=== PATIENT | female | born 1970 | race Caucasian/White ===

== ENCOUNTER 2022-05-09 13:01 | Inpatient (IN) | payer MEDICAID ==
[~2022-05-09] VITALS: Ht 149.9 cm; Wt 68.0 kg
[2022-05-09 13:17] VITALS: BP_SYST 138
[2022-05-09 13:48] LABS: BASOPHILS % (AUTO) 0.5 % (0.0-2.0); EOSINOPHILS # (AUTO) 0.1 K/uL (0.0-0.4); EOSINOPHILS % (AUTO) 1.1 % (0.0-4.0); HEMATOCRIT 40.2 % (36-48); LYMPHOCYTES # (AUTO) 1.5 K/uL (1.0-5.5); LYMPHOCYTES % (AUTO) 22.8 % (20.5-51.5); MEAN CORPUSCULAR HEMOGLOBIN 28 pg (27-31); MEAN CORPUSCULAR HGB CONC 32 % (32-36); MEAN CORPUSCULAR VOLUME 86 fL (79.0-98.0); MONOCYTES # (AUTO) 0.5 K/uL (0.0-1.0); MONOCYTES % (AUTO) 8.4 % (1.7-9.3); NEUTROPHILS # (AUTO) 4.3 K/uL (1.8-7.7); NEUTROPHILS % (AUTO) 67.2 % (40.0-70.0); PLATELET COUNT (AUTO) 52 K/uL (130-430); RED BLOOD CELL COUNT(AUTO) 4.66 MIL/uL (4.2-6.2); RED CELL DISTRIBUTION WIDTH 19.6 % (9.0-15.0); WHITE BLOOD COUNT (AUTO) 6.4 K/uL (4.8-10.8)
[2022-05-09 13:58] LABS: ANION GAP 10 (5-15); CALCIUM 7.8 mg/dL (8.4-11.0); CHLORIDE 106 mmol/L (98-107); CREATININE 0.55 mg/dL (0.55-1.30); GLUCOSE 102 mg/dL (70-99); UREA NITROGEN, BLOOD 10 mg/dL (8-21)
[2022-05-09 14:01] LABS: GFR AFRICAN AMERICAN 149 mL/min (>90)
[2022-05-09 14:03] LABS: INR 1.4 (0.8-1.2); PROTHROMBIN TIME 14.7 SECS (9.5-12.5)
[2022-05-09 14:06] LABS: ALANINE AMINOTRANSFERASE 55 U/L (12-78); ALBUMIN 2.3 g/dL (3.4-4.8); ASPARTATE AMINOTRANSFERASE 47 U/L (10-37); TOTAL BILIRUBIN 5.1 mg/dL (0.0-1.0)
[2022-05-09] MEDS ORDERED: DIPHENHYDRAMINE INJ 50 MG/ML VIAL IVP ONE (14:30)
[2022-05-09 14:39] LABS: BILIRUBIN,URINE 1+ (NEGATIVE); BLOOD, URINE 1+ (NEGATIVE); CLARITY/URINE SL CLOUDY (CLEAR); COLOR,URINE YELLOW (YELLOW); GLUCOSE,URINE NEGATIVE (NEGATIVE); KETONES,URINE TRACE (NEGATIVE); LEUKOCYTE ESTERASE ,URINE TRACE (NEGATIVE); NITRITE, URINE NEGATIVE (NEGATIVE); PROTEIN URINE NEGATIVE (NEGATIVE)
[2022-05-09 14:48] LABS: BACTERIA,URINE FEW /HPF (None Seen); MUCUS,URINE 2+ /LPF (None Seen)
[2022-05-09] MEDS ORDERED: iohexoL 350 mgI/mL, 100 ML INFUS..BTL IV ONE (15:31)
[2022-05-09] MEDS ORDERED: ONDANSETRON HCL 4 MG/2 ML VIAL IVP ONE (17:00)
[2022-05-09] MEDS ORDERED: LACTULOSE 20 GM/30 ML UDC PO ONE (17:00)
[2022-05-09] MEDS ORDERED: KETOROLAC TROMETHAMINE 30 MG VIAL IVP ONE (18:15)
[2022-05-09] MEDS ORDERED: MUPIROCIN 2% TOPICAL OINTMENT 22 GM NS PRN (20:15)
[2022-05-09] MEDS ORDERED: MORPHINE 2 MG/ML INJ. SYRINGE IVP PRN ×2 (20:15)
[2022-05-09] MEDS ORDERED: MAGNESIUM SULFATE 50 ML IV PRN (20:15)
[2022-05-09] MEDS ORDERED: ACETAMINOPHEN 325 MG TABLET PO PRN (20:15)
[2022-05-09] MEDS ORDERED: ONDANSETRON HCL 4 MG/2 ML VIAL IVP PRN (20:15)
[2022-05-09] MEDS ORDERED: POTASSIUM CHLORIDE 20 MEQ TAB.PRT.SR PO PRN (20:15)
[2022-05-09] MEDS ORDERED: DOCUSATE SODIUM 100 MG CAPSULE PO PRN (20:15)
[2022-05-09] MEDS ORDERED: DEXTROSE 50% JECT 50 ML DISP.SYRIN IVP PRN (20:30)
[2022-05-09] MEDS ORDERED: cefTRIAXone 1 GM IVPB PREMIX 50 ML IV ONE (22:00)
[2022-05-10] MEDS ORDERED: PROP10TA10 PO (05:18)
[2022-05-10 07:10] VITALS: BP_SYST 99
[2022-05-10 08:00] VITALS: BP_SYST 117
[2022-05-10 08:37] LABS: BASOPHILS % (AUTO) 0.4 % (0.0-2.0); EOSINOPHILS # (AUTO) 0.1 K/uL (0.0-0.4); HEMATOCRIT 36.4 % (36-48); HEMOGLOBIN 11.9 g/dL (12.0-16.0); LYMPHOCYTES # (AUTO) 1.3 K/uL (1.0-5.5); LYMPHOCYTES % (AUTO) 26.8 % (20.5-51.5); MEAN CORPUSCULAR HEMOGLOBIN 28 pg (27-31); MEAN CORPUSCULAR HGB CONC 33 % (32-36); MEAN CORPUSCULAR VOLUME 86 fL (79.0-98.0); MONOCYTES # (AUTO) 0.5 K/uL (0.0-1.0); MONOCYTES % (AUTO) 9.2 % (1.7-9.3); NEUTROPHILS % (AUTO) 61.6 % (40.0-70.0); RED BLOOD CELL COUNT(AUTO) 4.22 MIL/uL (4.2-6.2); RED CELL DISTRIBUTION WIDTH 19.6 % (9.0-15.0); WHITE BLOOD COUNT (AUTO) 4.9 K/uL (4.8-10.8)
[2022-05-10 08:50] LABS: ALBUMIN 1.9 g/dL (3.4-4.8); CALCIUM 7.1 mg/dL (8.4-11.0); CREATININE 0.63 mg/dL (0.55-1.30); TOTAL BILIRUBIN 3.3 mg/dL (0.0-1.0)
[2022-05-10] MEDS: LACTULOSE 20 GM/30 ML UDC PO SCH (10:19)
[2022-05-10 10:30] VITALS: BP_SYST 117
[2022-05-10] MEDS: cefTRIAXone 1 GM IVPB PREMIX 50 ML IV SCH (10:36)
[2022-05-10 10:51] LABS: PLATELET COUNT (AUTO) 48 K/uL (130-430)
[2022-05-10] MEDS ORDERED: DIATR MEGLU/DIATRIZ SOD 30 ML SOLUTION PO ONE (10:58)
[2022-05-10] MEDS ORDERED: fentaNYL CITRATE/PF 100 MCG/2 ML AMP ONE (18:54)
[2022-05-10 19:30] VITALS: BP_SYST 119
[2022-05-10] MEDS: INSULIN LISPRO SLIDING SCALE 100 UNITS/ML, 3 ML VIAL (humaLOG) SUBCUT PRN (21:41)
[2022-05-11 00:53] VITALS: BP_SYST 112
[2022-05-11 06:35] LABS: BASOPHILS % (AUTO) 0.5 % (0.0-2.0); EOSINOPHILS # (AUTO) 0.1 K/uL (0.0-0.4); EOSINOPHILS % (AUTO) 1.8 % (0.0-4.0); HEMATOCRIT 35.8 % (36-48); HEMOGLOBIN 11.6 g/dL (12.0-16.0); LYMPHOCYTES # (AUTO) 1.3 K/uL (1.0-5.5); LYMPHOCYTES % (AUTO) 26.8 % (20.5-51.5); MEAN CORPUSCULAR HEMOGLOBIN 28 pg (27-31); MEAN CORPUSCULAR HGB CONC 32 % (32-36); MEAN CORPUSCULAR VOLUME 87 fL (79.0-98.0); MONOCYTES # (AUTO) 0.4 K/uL (0.0-1.0); MONOCYTES % (AUTO) 8.5 % (1.7-9.3); NEUTROPHILS # (AUTO) 2.9 K/uL (1.8-7.7); NEUTROPHILS % (AUTO) 62.4 % (40.0-70.0); RED BLOOD CELL COUNT(AUTO) 4.14 MIL/uL (4.2-6.2); RED CELL DISTRIBUTION WIDTH 19.6 % (9.0-15.0); WHITE BLOOD COUNT (AUTO) 4.7 K/uL (4.8-10.8)
[2022-05-11 07:44] LABS: TOTAL IRON BIND. CAPACITY 175 ug/dL (250-450)
[2022-05-11 07:46] VITALS: BP_SYST 114
[2022-05-11 07:58] LABS: ALBUMIN 1.9 g/dL (3.4-4.8); CALCIUM 7.6 mg/dL (8.4-11.0); CREATININE 0.53 mg/dL (0.55-1.30); TOTAL BILIRUBIN 2.9 mg/dL (0.0-1.0)
[2022-05-11] MEDS: LACTULOSE 20 GM/30 ML UDC PO SCH (08:54)
[2022-05-11] MEDS: cefTRIAXone 1 GM IVPB PREMIX 50 ML IV SCH (08:55)
[2022-05-11 08:58] LABS: PLATELET COUNT (AUTO) 47 K/uL (130-430)
[2022-05-11 10:18] LABS: BILIRUBIN,DIRECT 1.5 mg/dL (0.0-0.3); TOTAL BILIRUBIN 3.8 mg/dL (0.0-1.0)
[2022-05-11] MEDS: INSULIN LISPRO SLIDING SCALE 100 UNITS/ML, 3 ML VIAL (humaLOG) SUBCUT PRN ×2 (11:29→21:59)
[2022-05-11 12:30] VITALS: BP_SYST 134
[2022-05-11 16:35] VITALS: BP_SYST 118
[2022-05-11 17:31] VITALS: BP_SYST 108
[2022-05-11 19:35] VITALS: BP_SYST 112
[2022-05-11] MEDS: ACETAMINOPHEN 325 MG TABLET PO PRN (21:54)
[2022-05-12 00:19] VITALS: BP_SYST 116
[2022-05-12 07:44] VITALS: BP_SYST 109
[2022-05-12 08:06] LABS: AFP, TUMOR MARKER <1.8 ng/mL (0.0-9.2); FERRITIN 44 ng/mL (15-150)
[2022-05-12] MEDS: cefTRIAXone 1 GM IVPB PREMIX 50 ML IV SCH (08:21)
[2022-05-12] MEDS: LACTULOSE 20 GM/30 ML UDC PO SCH (08:21)
[2022-05-12 09:06] LABS: ALPHA-1-ANTITRYPSIN, S 115 mg/dL (101-187)
[2022-05-12 10:42] LABS: CALCIUM 7.4 mg/dL (8.4-11.0); CREATININE 0.63 mg/dL (0.55-1.30)
[2022-05-12] MEDS: INSULIN LISPRO SLIDING SCALE 100 UNITS/ML, 3 ML VIAL (humaLOG) SUBCUT PRN (11:23)
[2022-05-12 11:46] VITALS: BP_SYST 107
[2022-05-12 12:13] LABS: HEMOGLOBIN 11.9 g/dL (12.0-16.0); RED BLOOD CELL COUNT(AUTO) 4.19 MIL/uL (4.2-6.2)
[2022-05-12 12:14] LABS: BASOPHILS % (AUTO) 0.5 % (0.0-2.0); EOSINOPHILS # (AUTO) 0.1 K/uL (0.0-0.4); EOSINOPHILS % (AUTO) 1.9 % (0.0-4.0); HEMATOCRIT 36.9 % (36-48); LYMPHOCYTES # (AUTO) 0.9 K/uL (1.0-5.5); LYMPHOCYTES % (AUTO) 24.6 % (20.5-51.5); MEAN CORPUSCULAR HEMOGLOBIN 28 pg (27-31); MEAN CORPUSCULAR HGB CONC 32 % (32-36); MEAN CORPUSCULAR VOLUME 88 fL (79.0-98.0); MONOCYTES # (AUTO) 0.3 K/uL (0.0-1.0); NEUTROPHILS # (AUTO) 2.3 K/uL (1.8-7.7); RED CELL DISTRIBUTION WIDTH 19.4 % (9.0-15.0); WHITE BLOOD COUNT (AUTO) 3.6 K/uL (4.8-10.8)
[2022-05-12 12:16] LABS: PLATELET COUNT (AUTO) 51 K/uL (130-430)
[2022-05-12 16:26] VITALS: BP_SYST 109
[2022-05-12 20:10] VITALS: BP_SYST 110
[2022-05-13] MEDS: ACETAMINOPHEN 325 MG TABLET PO PRN (00:13)
[2022-05-13 00:30] VITALS: BP_SYST 118
[2022-05-13 07:14] LABS: BASOPHILS % (AUTO) 0.5 % (0.0-2.0); EOSINOPHILS # (AUTO) 0.1 K/uL (0.0-0.4); EOSINOPHILS % (AUTO) 3.2 % (0.0-4.0); HEMOGLOBIN 11.3 g/dL (12.0-16.0); LYMPHOCYTES # (AUTO) 0.9 K/uL (1.0-5.5); LYMPHOCYTES % (AUTO) 28.9 % (20.5-51.5); MEAN CORPUSCULAR HEMOGLOBIN 29 pg (27-31); MEAN CORPUSCULAR HGB CONC 33 % (32-36); MEAN CORPUSCULAR VOLUME 87 fL (79.0-98.0); MONOCYTES # (AUTO) 0.3 K/uL (0.0-1.0); MONOCYTES % (AUTO) 10.6 % (1.7-9.3); NEUTROPHILS # (AUTO) 1.8 K/uL (1.8-7.7); NEUTROPHILS % (AUTO) 56.8 % (40.0-70.0); RED BLOOD CELL COUNT(AUTO) 3.89 MIL/uL (4.2-6.2); RED CELL DISTRIBUTION WIDTH 19.5 % (9.0-15.0); WHITE BLOOD COUNT (AUTO) 3.2 K/uL (4.8-10.8)
[2022-05-13 07:39] LABS: CREATININE 0.59 mg/dL (0.55-1.30)
[2022-05-13 08:00] VITALS: BP_SYST 101
[2022-05-13] MEDS: LACTULOSE 20 GM/30 ML UDC PO SCH (09:53)
[2022-05-13] MEDS: cefTRIAXone 1 GM IVPB PREMIX 50 ML IV SCH (09:53)
[2022-05-13 11:06] LABS: ANTI NUCLEAR AB WITH REFLEX Negative (Negative)
[2022-05-13 11:36] LABS: PLATELET COUNT (AUTO) 46 K/uL (130-430)
[2022-05-13 12:40] VITALS: BP_SYST 129
[2022-05-13 16:40] VITALS: BP_SYST 127
[2022-05-13 16:58] VITALS: BP_SYST 129
[2022-05-13] MEDS ORDERED: LACT10SO7 PO (17:25)
[2022-05-14 09:06] LABS: ANTI-SMOOTH MUSCLE AB 7 Units (0-19)
[2022-05-17 08:07] LABS: HEPATITIS A AB, IgM Negative (Negative); HEPATITIS B CORE AB, IgM Negative (Negative); HEPATITIS B SURFACE AG Confirm. indicated (Negative)
== END 2022-05-13 17:50 | disposition home or self-care (01) ==
LOC: SED 13:01 → STU 20:12
PROVIDERS: ADMIT Family Medicine; ATTEND Family Medicine
DX: K80.20 Calculus of gallbladder without cholecystitis without obstruction (principal); E43 Unspecified severe protein-calorie malnutrition; D68.9 Coagulation defect, unspecified; D69.6 Thrombocytopenia, unspecified; K74.60 Unspecified cirrhosis of liver; E87.6 Hypokalemia; R06.03 Acute respiratory distress; N39.0 Urinary tract infection, site not specified; Z20.822 Contact with and (suspected) exposure to COVID-19; E11.9 Type 2 diabetes mellitus without complications; Z83.49 Family history of other endocrine, nutritional and metabolic diseases; Z68.30 Body mass index [BMI] 30.0-30.9, adult
CPT/HCPCS: 36415; 36600; 71045; 71275; 76376; 76705; 78226; 80048; 80053; 80074; 80076; 81000; 82042; 82103; 82105; 82140; 82728; 82803-TC; 82962; 83516; 83540; 83550; 83605; 83690; 83735; 83880; 84484; 85025; 85379; 85610-TC; 85730-TC; 86038; 87040; 87086; 93005; 96365; 96375; 99285; A9537; G0378; J0696; J1200; J1885; J2405; J3010; J7050; Q9964; Q9967

== ENCOUNTER 2022-05-24 15:09 | Inpatient (IN) | payer MEDICAID ==
[~2022-05-24] VITALS: Ht 175.3 cm; Wt 70.3 kg
[~2022-05-24 15:09] MED LIST: LACT10SO7 PO; PROP10TA10 PO
[2022-05-24 16:13] VITALS: BP_SYST 131
[2022-05-24 17:11] LABS: BILIRUBIN,URINE NEGATIVE (NEGATIVE); CLARITY/URINE CLEAR (CLEAR); COLOR,URINE YELLOW (YELLOW); GLUCOSE,URINE NEGATIVE (NEGATIVE); KETONES,URINE NEGATIVE (NEGATIVE); LEUKOCYTE ESTERASE ,URINE 1+ (NEGATIVE); NITRITE, URINE NEGATIVE (NEGATIVE); PH,URINE 5.5 (5.0-8.0); PROTEIN URINE NEGATIVE (NEGATIVE); UROBILINOGEN,URINE 0.2 (0.2-1.0)
[2022-05-24 17:24] LABS: BLOOD, URINE TRACE (NEGATIVE)
[2022-05-24 17:25] LABS: BACTERIA,URINE FEW /HPF (None Seen); MUCUS,URINE None Seen /LPF (None Seen); RBC,URINE NONE SEEN /HPF (0-3)
[2022-05-24 17:32] LABS: BASOPHILS % (AUTO) 0.4 % (0.0-2.0); EOSINOPHILS # (AUTO) 0.1 K/uL (0.0-0.4); EOSINOPHILS % (AUTO) 1.4 % (0.0-4.0); HEMATOCRIT 38.1 % (36-48); HEMOGLOBIN 12.6 g/dL (12.0-16.0); LYMPHOCYTES # (AUTO) 0.7 K/uL (1.0-5.5); LYMPHOCYTES % (AUTO) 19.1 % (20.5-51.5); MEAN CORPUSCULAR HEMOGLOBIN 28 pg (27-31); MEAN CORPUSCULAR HGB CONC 33 % (32-36); MEAN CORPUSCULAR VOLUME 85 fL (79.0-98.0); MONOCYTES # (AUTO) 0.4 K/uL (0.0-1.0); MONOCYTES % (AUTO) 11.5 % (1.7-9.3); NEUTROPHILS # (AUTO) 2.4 K/uL (1.8-7.7); NEUTROPHILS % (AUTO) 67.6 % (40.0-70.0); RED BLOOD CELL COUNT(AUTO) 4.47 MIL/uL (4.2-6.2); WHITE BLOOD COUNT (AUTO) 3.5 K/uL (4.8-10.8)
[2022-05-24 17:45] LABS: ANION GAP 9 (5-15); CALCIUM 7.4 mg/dL (8.4-11.0); CHLORIDE 108 mmol/L (98-107); CREATININE 0.51 mg/dL (0.55-1.30); GLUCOSE 95 mg/dL (70-99); PLATELET COUNT (AUTO) 59 K/uL (130-430); UREA NITROGEN, BLOOD 9 mg/dL (8-21)
[2022-05-24 17:49] LABS: ALANINE AMINOTRANSFERASE 48 U/L (12-78); AMYLASE 74 U/L (0-100); ASPARTATE AMINOTRANSFERASE 68 U/L (10-37); C-REACTIVE PROTEIN QUANT 3.7 mg/dL (0-0.5); INR 1.4 (0.8-1.2); LACTATE DEHYDROGENASE 317 U/L (81-234); LIPASE 257 U/L (73-393); TOTAL BILIRUBIN 3.4 mg/dL (0.0-1.0)
[2022-05-24 17:53] LABS: GFR AFRICAN AMERICAN 163 mL/min (>90)
[2022-05-24 18:07] LABS: ACETONE, SERUM NEGATIVE (NEGATIVE)
[2022-05-25] MEDS ORDERED: NALOXONE HCL 0.4 MG/ML AMP (NARCAN) IVP PRN ×2 (04:45)
[2022-05-25] MEDS ORDERED: HYDROcodone/ACETAMIN 10-325 MG TAB PO PRN (04:45)
[2022-05-25] MEDS ORDERED: ACETAMINOPHEN 325 MG TABLET PO PRN (04:45)
[2022-05-25] MEDS ORDERED: HYDROcodone/ACETAMIN 5-325 MG TAB (NORCO/ VICODIN) PO PRN (04:45)
[2022-05-25] MEDS ORDERED: ONDANSETRON HCL 4 MG/2 ML VIAL IVP PRN (04:45)
[2022-05-25] MEDS ORDERED: NORMAL SALINE 5 ML DISP.SYRIN IVF SCH (06:00)
[2022-05-25] MEDS: NORMAL SALINE 5 ML DISP.SYRIN IVF SCH ×2 (06:14→14:00)
[2022-05-25] MEDS: FUROSEMIDE 40 MG/4 ML VIAL IVP SCH (09:00)
[2022-05-25] MEDS ORDERED: NON-FORMULARY MEDICATION (Lactulose 20 GM) PO SCH (09:00)
[2022-05-25] MEDS: LACTULOSE 20 GM/30 ML UDC PO SCH (09:00)
[2022-05-25] MEDS: PROPRANOLOL HCL 10 MG TABLET (INDERAL) PO SCH ×3 (09:00→21:00)
[2022-05-25 09:28] LABS: BASOPHILS % (AUTO) 0.2 % (0.0-2.0); EOSINOPHILS % (AUTO) 1.4 % (0.0-4.0); HEMATOCRIT 34.1 % (36-48); HEMOGLOBIN 11.1 g/dL (12.0-16.0); LYMPHOCYTES # (AUTO) 0.7 K/uL (1.0-5.5); LYMPHOCYTES % (AUTO) 29.1 % (20.5-51.5); MEAN CORPUSCULAR HEMOGLOBIN 28 pg (27-31); MEAN CORPUSCULAR HGB CONC 33 % (32-36); MEAN CORPUSCULAR VOLUME 87 fL (79.0-98.0); MONOCYTES # (AUTO) 0.3 K/uL (0.0-1.0); MONOCYTES % (AUTO) 12.4 % (1.7-9.3); NEUTROPHILS # (AUTO) 1.3 K/uL (1.8-7.7); NEUTROPHILS % (AUTO) 56.9 % (40.0-70.0); RED BLOOD CELL COUNT(AUTO) 3.94 MIL/uL (4.2-6.2); RED CELL DISTRIBUTION WIDTH 20.2 % (9.0-15.0); WHITE BLOOD COUNT (AUTO) 2.3 K/uL (4.8-10.8)
[2022-05-25 09:46] LABS: ALBUMIN 1.7 g/dL (3.4-4.8); CALCIUM 7.3 mg/dL (8.4-11.0); CREATININE 0.65 mg/dL (0.55-1.30); TOTAL BILIRUBIN 3.5 mg/dL (0.0-1.0)
[2022-05-25 09:48] LABS: PLATELET COUNT (AUTO) 40 K/uL (130-430)
[2022-05-25] MEDS ORDERED: KCL 40 mEq in 100 mL (PREMIX) 100 ML IV ONE (12:30)
[2022-05-25] MEDS ORDERED: POTASSIUM CHLORIDE 40 MEQ in D5W 250 ML IV ONE (13:00)
[2022-05-25] MEDS: SPIRONOLACTONE 50 MG TABLET (ALDACTONE) PO SCH ×2 (15:45→21:00)
[2022-05-25] MEDS: DEXAMETHASONE SOD PHOSPHATE 10 MG/ML VIAL IVP SCH (20:15)
[2022-05-26] MEDS: NORMAL SALINE 5 ML DISP.SYRIN IVF SCH ×4 (00:10→21:59)
[2022-05-26 07:57] LABS: BASOPHILS % (AUTO) 0.1 % (0.0-2.0); EOSINOPHILS % (AUTO) 0.2 % (0.0-4.0); HEMATOCRIT 37.1 % (36-48); HEMOGLOBIN 11.8 g/dL (12.0-16.0); LYMPHOCYTES # (AUTO) 0.5 K/uL (1.0-5.5); LYMPHOCYTES % (AUTO) 26.7 % (20.5-51.5); MEAN CORPUSCULAR HEMOGLOBIN 28 pg (27-31); MEAN CORPUSCULAR HGB CONC 32 % (32-36); MEAN CORPUSCULAR VOLUME 87 fL (79.0-98.0); MONOCYTES # (AUTO) 0.1 K/uL (0.0-1.0); MONOCYTES % (AUTO) 2.7 % (1.7-9.3); NEUTROPHILS # (AUTO) 1.3 K/uL (1.8-7.7); NEUTROPHILS % (AUTO) 70.3 % (40.0-70.0); RED BLOOD CELL COUNT(AUTO) 4.25 MIL/uL (4.2-6.2); RED CELL DISTRIBUTION WIDTH 20.4 % (9.0-15.0)
[2022-05-26 08:05] LABS: PLATELET COUNT (AUTO) 40 K/uL (130-430); WHITE BLOOD COUNT (AUTO) 1.9 K/uL (4.8-10.8)
[2022-05-26 08:19] LABS: ALBUMIN 1.8 g/dL (3.4-4.8); CALCIUM 7.7 mg/dL (8.4-11.0); CREATININE 0.62 mg/dL (0.55-1.30); INR 1.6 (0.8-1.2); PROTHROMBIN TIME 15.5 SECS (9.5-12.5); TOTAL BILIRUBIN 2.3 mg/dL (0.0-1.0)
[2022-05-26] MEDS: PROPRANOLOL HCL 10 MG TABLET (INDERAL) PO SCH ×3 (09:00→21:00)
[2022-05-26] MEDS: LACTULOSE 20 GM/30 ML UDC PO SCH (12:31)
[2022-05-26] MEDS: SPIRONOLACTONE 50 MG TABLET (ALDACTONE) PO SCH ×2 (12:34→21:00)
[2022-05-26] MEDS: FUROSEMIDE 40 MG/4 ML VIAL IVP SCH (12:35)
[2022-05-26 13:55] VITALS: BP_SYST 108
[2022-05-26 16:24] VITALS: BP_SYST 106
[2022-05-26 20:00] VITALS: BP_SYST 103
[2022-05-26] MEDS: DEXAMETHASONE SOD PHOSPHATE 10 MG/ML VIAL IVP SCH (21:55)
[2022-05-27 08:06] LABS: FERRITIN 51 ng/mL (15-150); FOLATE (FOLIC ACID) 9.8 ng/mL (>3.0)
[2022-05-27 08:11] LABS: HEMATOCRIT 34.8 % (36-48); HEMOGLOBIN 11.3 g/dL (12.0-16.0); LYMPHOCYTES % (AUTO) 11.8 % (20.5-51.5); MEAN CORPUSCULAR HEMOGLOBIN 29 pg (27-31); MEAN CORPUSCULAR HGB CONC 33 % (32-36); MEAN CORPUSCULAR VOLUME 88 fL (79.0-98.0); MONOCYTES # (AUTO) 0.2 K/uL (0.0-1.0); MONOCYTES % (AUTO) 2.7 % (1.7-9.3); NEUTROPHILS # (AUTO) 7.6 K/uL (1.8-7.7); NEUTROPHILS % (AUTO) 85.5 % (40.0-70.0); PLATELET COUNT (AUTO) 50 K/uL (130-430); RED BLOOD CELL COUNT(AUTO) 3.98 MIL/uL (4.2-6.2); RED CELL DISTRIBUTION WIDTH 20.6 % (9.0-15.0); WHITE BLOOD COUNT (AUTO) 8.9 K/uL (4.8-10.8)
[2022-05-27 08:29] LABS: INR 1.7 (0.8-1.2); PROTHROMBIN TIME 16.9 SECS (9.5-12.5)
[2022-05-27] MEDS: LACTULOSE 20 GM/30 ML UDC PO SCH (08:43)
[2022-05-27] MEDS: NORMAL SALINE 5 ML DISP.SYRIN IVF SCH ×3 (08:43→21:05)
[2022-05-27] MEDS: FUROSEMIDE 40 MG/4 ML VIAL IVP SCH (08:44)
[2022-05-27 08:54] VITALS: BP_SYST 104
[2022-05-27] MEDS: ACETAMINOPHEN 325 MG TABLET PO PRN (08:54)
[2022-05-27] MEDS: SPIRONOLACTONE 50 MG TABLET (ALDACTONE) PO SCH ×2 (08:54→21:15)
[2022-05-27 08:55] LABS: ALBUMIN 1.7 g/dL (3.4-4.8); C-REACTIVE PROTEIN QUANT 3.7 mg/dL (0-0.5); CALCIUM 7.5 mg/dL (8.4-11.0); CREATININE 0.57 mg/dL (0.55-1.30); TOTAL BILIRUBIN 1.7 mg/dL (0.0-1.0)
[2022-05-27 08:58] LABS: ERYTHROCYTE SEDIMENTATION RATE 12 MM/HR (0-20)
[2022-05-27] MEDS: PROPRANOLOL HCL 10 MG TABLET (INDERAL) PO SCH ×3 (09:00→21:00)
[2022-05-27 12:00] VITALS: BP_SYST 97
[2022-05-27 16:00] VITALS: BP_SYST 109
[2022-05-27 20:00] VITALS: BP_SYST 109
[2022-05-27] MEDS: DEXAMETHASONE SOD PHOSPHATE 10 MG/ML VIAL IVP SCH (21:04)
[2022-05-28 02:00] VITALS: BP_SYST 105
[2022-05-28 07:17] LABS: C-REACTIVE PROTEIN QUANT 2.5 mg/dL (0-0.5); CALCIUM 7.8 mg/dL (8.4-11.0); CREATININE 0.62 mg/dL (0.55-1.30)
[2022-05-28 07:33] LABS: HEMATOCRIT 31.9 % (36-48); HEMOGLOBIN 10.4 g/dL (12.0-16.0); LYMPHOCYTES # (AUTO) 0.8 K/uL (1.0-5.5); LYMPHOCYTES % (AUTO) 15.3 % (20.5-51.5); MEAN CORPUSCULAR HEMOGLOBIN 28 pg (27-31); MEAN CORPUSCULAR HGB CONC 33 % (32-36); MEAN CORPUSCULAR VOLUME 87 fL (79.0-98.0); MONOCYTES # (AUTO) 0.2 K/uL (0.0-1.0); MONOCYTES % (AUTO) 3.5 % (1.7-9.3); NEUTROPHILS # (AUTO) 4.1 K/uL (1.8-7.7); NEUTROPHILS % (AUTO) 81.2 % (40.0-70.0); RED BLOOD CELL COUNT(AUTO) 3.69 MIL/uL (4.2-6.2); RED CELL DISTRIBUTION WIDTH 20.5 % (9.0-15.0); WHITE BLOOD COUNT (AUTO) 5.1 K/uL (4.8-10.8)
[2022-05-28 08:21] LABS: PLATELET COUNT (AUTO) 35 K/uL (130-430)
[2022-05-28 08:27] VITALS: BP_SYST 102
[2022-05-28] MEDS: PROPRANOLOL HCL 10 MG TABLET (INDERAL) PO SCH ×3 (09:00→21:00)
[2022-05-28] MEDS: LACTULOSE 20 GM/30 ML UDC PO SCH (09:35)
[2022-05-28] MEDS: SPIRONOLACTONE 50 MG TABLET (ALDACTONE) PO SCH ×2 (09:36→22:11)
[2022-05-28] MEDS: FUROSEMIDE 40 MG/4 ML VIAL IVP SCH (09:36)
[2022-05-28] MEDS: NORMAL SALINE 5 ML DISP.SYRIN IVF SCH ×3 (09:37→22:14)
[2022-05-28 10:14] LABS: ERYTHROCYTE SEDIMENTATION RATE 13 MM/HR (0-20)
[2022-05-28 12:00] VITALS: BP_SYST 102
[2022-05-28 12:06] LABS: HEPATITIS Be AB Negative (Negative)
[2022-05-28 16:00] VITALS: BP_SYST 116
[2022-05-28 19:45] VITALS: BP_SYST 105
[2022-05-28] MEDS: DEXAMETHASONE SOD PHOSPHATE 10 MG/ML VIAL IVP SCH (21:56)
[2022-05-28] MEDS: ACETAMINOPHEN 325 MG TABLET PO PRN (22:15)
[2022-05-29] VITALS (32 sets, daily range): BP systolic 82–118
[2022-05-29] MEDS: NORMAL SALINE 5 ML DISP.SYRIN IVF SCH ×3 (06:00→20:28)
[2022-05-29 08:06] LABS: HEPATITIS B CORE AB, IgM Negative (Negative); HEPATITIS B CORE AB, TOTAL Negative (Negative); HEPATITIS Be AG Negative (Negative)
[2022-05-29] MEDS: PROPRANOLOL HCL 10 MG TABLET (INDERAL) PO SCH ×3 (09:00→20:28)
[2022-05-29] MEDS: FUROSEMIDE 40 MG/4 ML VIAL IVP SCH (09:00)
[2022-05-29] MEDS: SPIRONOLACTONE 50 MG TABLET (ALDACTONE) PO SCH ×2 (09:00→20:28)
[2022-05-29] MEDS: LACTULOSE 20 GM/30 ML UDC PO SCH (09:00)
[2022-05-29 12:09] LABS: BASOPHILS % (AUTO) 0.3 % (0.0-2.0); HEMATOCRIT 37.1 % (36-48); HEMOGLOBIN 12.1 g/dL (12.0-16.0); LYMPHOCYTES # (AUTO) 0.7 K/uL (1.0-5.5); LYMPHOCYTES % (AUTO) 14.7 % (20.5-51.5); MEAN CORPUSCULAR HEMOGLOBIN 28 pg (27-31); MEAN CORPUSCULAR HGB CONC 33 % (32-36); MEAN CORPUSCULAR VOLUME 87 fL (79.0-98.0); MONOCYTES # (AUTO) 0.3 K/uL (0.0-1.0); MONOCYTES % (AUTO) 5.2 % (1.7-9.3); NEUTROPHILS # (AUTO) 4.1 K/uL (1.8-7.7); NEUTROPHILS % (AUTO) 79.8 % (40.0-70.0); RED BLOOD CELL COUNT(AUTO) 4.27 MIL/uL (4.2-6.2); RED CELL DISTRIBUTION WIDTH 20.4 % (9.0-15.0); WHITE BLOOD COUNT (AUTO) 5.1 K/uL (4.8-10.8)
[2022-05-29 12:10] LABS: CREATININE 0.72 mg/dL (0.55-1.30)
[2022-05-29 12:21] LABS: ALBUMIN 1.7 g/dL (3.4-4.8); TOTAL BILIRUBIN 1.6 mg/dL (0.0-1.0)
[2022-05-29 12:27] LABS: PLATELET COUNT (AUTO) 41 K/uL (130-430)
[2022-05-29] MEDS ORDERED: ALBUMIN HUMAN 5% 250 ML IV ONE ×2 (16:30)
[2022-05-29] MEDS: DEXAMETHASONE SOD PHOSPHATE 10 MG/ML VIAL IVP SCH (20:27)
[2022-05-29] MEDS: NOREPINEPHRINE BITARTRATE 8 MG in D5W 242 ML IV PRN (20:42)
[2022-05-29] MEDS: PROPOFOL DRIP 100 ML IV PRN (23:59)
[2022-05-30] VITALS (48 sets, daily range): BP systolic 77–123
[2022-05-30] MEDS ORDERED: AZITHROMYCIN 500 MG in NS 250 ML IV ONE (03:30)
[2022-05-30] MEDS ORDERED: AZITHROMYCIN 500 MG/VIAL (ZITHROMAX) IV ONE (03:46)
[2022-05-30] MEDS ORDERED: CEFEPIME 2 GM/VIAL (MAXIPIME) ONE (05:17)
[2022-05-30] MEDS: CEFEPIME 2 GM in D5W 100 ML IV SCH ×2 (05:20→21:22)
[2022-05-30] MEDS: NORMAL SALINE 5 ML DISP.SYRIN IVF SCH ×3 (05:50→21:25)
[2022-05-30 06:46] LABS: CALCIUM 7.9 mg/dL (8.4-11.0); CREATININE 0.44 mg/dL (0.55-1.30)
[2022-05-30 07:08] LABS: INR 2.4 (0.8-1.2)
[2022-05-30 07:58] LABS: BASOPHILS % (AUTO) 0.6 % (0.0-2.0); EOSINOPHILS % (AUTO) 0.3 % (0.0-4.0); HEMATOCRIT 34.1 % (36-48); HEMOGLOBIN 11.4 g/dL (12.0-16.0); LYMPHOCYTES # (AUTO) 1.1 K/uL (1.0-5.5); LYMPHOCYTES % (AUTO) 15.4 % (20.5-51.5); MEAN CORPUSCULAR HEMOGLOBIN 29 pg (27-31); MEAN CORPUSCULAR HGB CONC 34 % (32-36); MEAN CORPUSCULAR VOLUME 88 fL (79.0-98.0); MONOCYTES # (AUTO) 0.3 K/uL (0.0-1.0); NEUTROPHILS # (AUTO) 5.6 K/uL (1.8-7.7); NEUTROPHILS % (AUTO) 79.7 % (40.0-70.0); PLATELET COUNT (AUTO) 147 K/uL (130-430); RED BLOOD CELL COUNT(AUTO) 3.89 MIL/uL (4.2-6.2); WHITE BLOOD COUNT (AUTO) 7.1 K/uL (4.8-10.8)
[2022-05-30 08:01] LABS: PROTHROMBIN TIME 22.9 SECS (9.5-12.5)
[2022-05-30] MEDS: SPIRONOLACTONE 50 MG TABLET (ALDACTONE) PO SCH ×2 (09:00→21:23)
[2022-05-30] MEDS ORDERED: PHYTONADIONE 10 MG in NS 50 ML IV ONE (09:30)
[2022-05-30] MEDS ORDERED: iohexoL 350 mgI/mL, 100 ML INFUS..BTL IV ONE (10:23)
[2022-05-30 12:53] LABS: BF APPEARANCE UNSPUN HAZY (CLEAR); BODY FLUID SOURCE/ TYPE ASCITES
[2022-05-30 12:59] LABS: APPEARANCE,SPUN,BODY FLUID CLEAR (CLEAR); BODY FLUID COLOR YELLOW (LT YELLOW); BODY FLUID TOTAL VOLUME 3900 mL; LYMPHOCYTES, BODY FLUID 69 %; NEUTROPHIL, BODY FLUID 23 %; RBC, BODY FLUID 883 /uL; WBC, BODY FLUID 88 /uL
[2022-05-30 13:00] LABS: EOSINOPHIL, BODY FLUID 0 %; MONOCYTES,BODY FLUID 8 %
[2022-05-30] MEDS ORDERED: PHYTONADIONE 10 MG/ML AMP ONE (14:35)
[2022-05-30] MEDS: LACTULOSE 20 GM/30 ML UDC PO SCH (15:04)
[2022-05-30] MEDS: PROPOFOL DRIP 100 ML IV PRN (15:09)
[2022-05-30] MEDS: PROPRANOLOL HCL 10 MG TABLET (INDERAL) PO SCH ×3 (15:09→21:24)
[2022-05-30] MEDS: FUROSEMIDE 40 MG/4 ML VIAL IVP SCH (15:14)
[2022-05-30] MEDS: DEXAMETHASONE SOD PHOSPHATE 10 MG/ML VIAL IVP SCH (20:47)
[2022-05-30 22:13] LABS: BODY FLUID GLUCOSE 201 mg/dL; BODY FLUID TOTAL PROTEIN 0.7 g/dL
[2022-05-31] VITALS (50 sets, daily range): BP systolic 88–132
[2022-05-31] MEDS: PROPOFOL DRIP 100 ML IV PRN ×4 (02:38→21:27)
[2022-05-31] MEDS: NORMAL SALINE 5 ML DISP.SYRIN IVF SCH ×3 (05:25→21:26)
[2022-05-31 06:25] LABS: BASOPHILS % (AUTO) 0.1 % (0.0-2.0); HEMATOCRIT 37.4 % (36-48); HEMOGLOBIN 12.5 g/dL (12.0-16.0); LYMPHOCYTES # (AUTO) 1.5 K/uL (1.0-5.5); LYMPHOCYTES % (AUTO) 15.5 % (20.5-51.5); MEAN CORPUSCULAR HEMOGLOBIN 28 pg (27-31); MEAN CORPUSCULAR HGB CONC 33 % (32-36); MEAN CORPUSCULAR VOLUME 85 fL (79.0-98.0); MONOCYTES # (AUTO) 0.4 K/uL (0.0-1.0); MONOCYTES % (AUTO) 4.6 % (1.7-9.3); NEUTROPHILS # (AUTO) 7.6 K/uL (1.8-7.7); NEUTROPHILS % (AUTO) 79.8 % (40.0-70.0); PLATELET COUNT (AUTO) 88 K/uL (130-430); RED CELL DISTRIBUTION WIDTH 20.8 % (9.0-15.0); WHITE BLOOD COUNT (AUTO) 9.5 K/uL (4.8-10.8)
[2022-05-31 06:48] LABS: ALBUMIN 1.9 g/dL (3.4-4.8); C-REACTIVE PROTEIN QUANT 1.1 mg/dL (0-0.5); CALCIUM 8.2 mg/dL (8.4-11.0); CREATININE 0.85 mg/dL (0.55-1.30); TOTAL BILIRUBIN 3.7 mg/dL (0.0-1.0)
[2022-05-31 08:06] LABS: INR 2.1 (0.8-1.2); PROTHROMBIN TIME 20.8 SECS (9.5-12.5)
[2022-05-31] MEDS: SPIRONOLACTONE 50 MG TABLET (ALDACTONE) PO SCH ×2 (09:00→21:23)
[2022-05-31] MEDS: AZITHROMYCIN 250 MG in NS 250 ML IV SCH (09:00)
[2022-05-31] MEDS: PROPRANOLOL HCL 10 MG TABLET (INDERAL) PO SCH ×3 (09:00→21:24)
[2022-05-31] MEDS: CEFEPIME 2 GM in D5W 100 ML IV SCH ×2 (09:11→21:25)
[2022-05-31] MEDS: FUROSEMIDE 40 MG/4 ML VIAL IVP SCH (09:12)
[2022-05-31] MEDS: LACTULOSE 20 GM/30 ML UDC PO SCH (09:13)
[2022-05-31 10:32] LABS: ERYTHROCYTE SEDIMENTATION RATE 3 MM/HR (0-20)
[2022-05-31] MEDS: LORazepam 2 MG/ML VIAL IV PRN (13:04)
[2022-05-31 14:14] LABS: SOURCE/TYPE ,BODY FLUID PARACENTESIS
[2022-05-31] MEDS: DEXAMETHASONE SOD PHOSPHATE 10 MG/ML VIAL IVP SCH (21:25)
[2022-05-31] MEDS: NOREPINEPHRINE BITARTRATE 8 MG in D5W 242 ML IV PRN (21:28)
[2022-06-01] VITALS (26 sets, daily range): BP systolic 97–163
[2022-06-01] MEDS: PROPOFOL DRIP 100 ML IV PRN ×2 (04:52→14:37)
[2022-06-01] MEDS: NORMAL SALINE 5 ML DISP.SYRIN IVF SCH ×3 (05:49→21:45)
[2022-06-01 07:37] LABS: C-REACTIVE PROTEIN QUANT 0.8 mg/dL (0-0.5); CREATININE 0.82 mg/dL (0.55-1.30)
[2022-06-01 08:06] LABS: HEMATOCRIT 39.1 % (36-48); HEMOGLOBIN 12.7 g/dL (12.0-16.0); MEAN CORPUSCULAR HEMOGLOBIN 28 pg (27-31); MEAN CORPUSCULAR HGB CONC 33 % (32-36); MEAN CORPUSCULAR VOLUME 86 fL (79.0-98.0); RED BLOOD CELL COUNT(AUTO) 4.55 MIL/uL (4.2-6.2); RED CELL DISTRIBUTION WIDTH 20.5 % (9.0-15.0); WHITE BLOOD COUNT (AUTO) 8.4 K/uL (4.8-10.8)
[2022-06-01 08:07] LABS: BASOPHILS % (AUTO) 0.3 % (0.0-2.0); LYMPHOCYTES # (AUTO) 0.8 K/uL (1.0-5.5); MONOCYTES # (AUTO) 0.5 K/uL (0.0-1.0); MONOCYTES % (AUTO) 6.2 % (1.7-9.3); NEUTROPHILS % (AUTO) 83.5 % (40.0-70.0); PLATELET COUNT (AUTO) 72 K/uL (130-430)
[2022-06-01 08:56] LABS: ERYTHROCYTE SEDIMENTATION RATE 5 MM/HR (0-20)
[2022-06-01] MEDS: LACTULOSE 20 GM/30 ML UDC PO SCH (09:00)
[2022-06-01] MEDS: AZITHROMYCIN 250 MG in NS 250 ML IV SCH (09:00)
[2022-06-01] MEDS: FUROSEMIDE 40 MG/4 ML VIAL IVP SCH (09:00)
[2022-06-01] MEDS: SPIRONOLACTONE 50 MG TABLET (ALDACTONE) PO SCH ×2 (09:00→22:06)
[2022-06-01] MEDS: PROPRANOLOL HCL 10 MG TABLET (INDERAL) PO SCH ×3 (09:00→22:23)
[2022-06-01] MEDS: CEFEPIME 2 GM in D5W 100 ML IV SCH ×2 (11:00→22:05)
[2022-06-01] MEDS: DEXAMETHASONE SOD PHOSPHATE 10 MG/ML VIAL IVP SCH (21:57)
[2022-06-02] VITALS (30 sets, daily range): BP systolic 85–137
[2022-06-02] MEDS: NORMAL SALINE 5 ML DISP.SYRIN IVF SCH ×3 (06:02→21:44)
[2022-06-02 06:45] LABS: BASOPHILS % (AUTO) 0.1 % (0.0-2.0); HEMATOCRIT 39.7 % (36-48); HEMOGLOBIN 13.2 g/dL (12.0-16.0); LYMPHOCYTES # (AUTO) 0.7 K/uL (1.0-5.5); LYMPHOCYTES % (AUTO) 9.2 % (20.5-51.5); MEAN CORPUSCULAR HEMOGLOBIN 28 pg (27-31); MEAN CORPUSCULAR HGB CONC 33 % (32-36); MEAN CORPUSCULAR VOLUME 85 fL (79.0-98.0); MONOCYTES # (AUTO) 0.3 K/uL (0.0-1.0); MONOCYTES % (AUTO) 4.1 % (1.7-9.3); NEUTROPHILS # (AUTO) 6.1 K/uL (1.8-7.7); NEUTROPHILS % (AUTO) 86.6 % (40.0-70.0); PLATELET COUNT (AUTO) 57 K/uL (130-430); RED BLOOD CELL COUNT(AUTO) 4.66 MIL/uL (4.2-6.2); RED CELL DISTRIBUTION WIDTH 20.5 % (9.0-15.0); WHITE BLOOD COUNT (AUTO) 7.1 K/uL (4.8-10.8)
[2022-06-02 07:23] LABS: INR 2.2 (0.8-1.2); PROTHROMBIN TIME 21.5 SECS (9.5-12.5)
[2022-06-02] MEDS: CEFEPIME 2 GM in D5W 100 ML IV SCH ×2 (08:40→20:08)
[2022-06-02] MEDS: AZITHROMYCIN 250 MG in NS 250 ML IV SCH (08:40)
[2022-06-02] MEDS: ASCORBIC ACID 500 MG TABLET NG SCH (08:41)
[2022-06-02] MEDS: VITAMIN B COMPLEX 1 CAP/TAB GT SCH (08:41)
[2022-06-02] MEDS: SPIRONOLACTONE 50 MG TABLET (ALDACTONE) PO SCH ×2 (08:41→20:06)
[2022-06-02] MEDS: LACTULOSE 20 GM/30 ML UDC PO SCH (08:41)
[2022-06-02] MEDS: FUROSEMIDE 40 MG/4 ML VIAL IVP SCH (08:41)
[2022-06-02] MEDS: PROPRANOLOL HCL 10 MG TABLET (INDERAL) PO SCH ×3 (08:43→20:06)
[2022-06-02] MEDS: NOREPINEPHRINE BITARTRATE 8 MG in D5W 242 ML IV PRN (09:29)
[2022-06-02] MEDS: ERGOCALCIFEROL 8000 UNITS/ML ORAL SOLUTION, 60 ML BOTTLE GT SCH (15:21)
[2022-06-02] MEDS: DEXAMETHASONE SOD PHOSPHATE 10 MG/ML VIAL IVP SCH (20:06)
[2022-06-02] MEDS: PROPOFOL DRIP 100 ML IV PRN (21:48)
[2022-06-03] VITALS (34 sets, daily range): BP systolic 93–146
[2022-06-03 07:02] LABS: BASOPHILS % (AUTO) 0.2 % (0.0-2.0); HEMATOCRIT 41.8 % (36-48); HEMOGLOBIN 13.6 g/dL (12.0-16.0); LYMPHOCYTES # (AUTO) 0.6 K/uL (1.0-5.5); LYMPHOCYTES % (AUTO) 5.5 % (20.5-51.5); MEAN CORPUSCULAR HEMOGLOBIN 28 pg (27-31); MEAN CORPUSCULAR HGB CONC 33 % (32-36); MEAN CORPUSCULAR VOLUME 86 fL (79.0-98.0); MONOCYTES # (AUTO) 0.3 K/uL (0.0-1.0); NEUTROPHILS # (AUTO) 9.8 K/uL (1.8-7.7); NEUTROPHILS % (AUTO) 91.3 % (40.0-70.0); PLATELET COUNT (AUTO) 58 K/uL (130-430); RED BLOOD CELL COUNT(AUTO) 4.87 MIL/uL (4.2-6.2); RED CELL DISTRIBUTION WIDTH 20.1 % (9.0-15.0); WHITE BLOOD COUNT (AUTO) 10.7 K/uL (4.8-10.8)
[2022-06-03 08:33] LABS: ALBUMIN 1.8 g/dL (3.4-4.8); C-REACTIVE PROTEIN QUANT 0.6 mg/dL (0-0.5); CALCIUM 8.7 mg/dL (8.4-11.0); CREATININE 0.73 mg/dL (0.55-1.30); TOTAL BILIRUBIN 3.4 mg/dL (0.0-1.0)
[2022-06-03] MEDS: ASCORBIC ACID 500 MG TABLET NG SCH ×2 (08:57→09:01)
[2022-06-03] MEDS: SPIRONOLACTONE 50 MG TABLET (ALDACTONE) PO SCH ×2 (08:58→09:02)
[2022-06-03] MEDS: FUROSEMIDE 40 MG/4 ML VIAL IVP SCH ×2 (08:58→09:03)
[2022-06-03] MEDS: CEFEPIME 2 GM in D5W 100 ML IV SCH ×2 (08:59→20:25)
[2022-06-03] MEDS: VITAMIN B COMPLEX 1 CAP/TAB GT SCH (09:00)
[2022-06-03] MEDS: LACTULOSE 20 GM/30 ML UDC PO SCH (09:00)
[2022-06-03] MEDS: AZITHROMYCIN 250 MG in NS 250 ML IV SCH (09:00)
[2022-06-03] MEDS: PROPRANOLOL HCL 10 MG TABLET (INDERAL) PO SCH ×3 (09:00→20:25)
[2022-06-03] MEDS: ERGOCALCIFEROL 8000 UNITS/ML ORAL SOLUTION, 60 ML BOTTLE GT SCH (09:04)
[2022-06-03] MEDS: PROPOFOL DRIP 100 ML IV PRN (12:31)
[2022-06-03 12:34] LABS: ERYTHROCYTE SEDIMENTATION RATE 2 MM/HR (0-20)
[2022-06-03] MEDS: NORMAL SALINE 5 ML DISP.SYRIN IVF SCH ×2 (14:00→22:59)
[2022-06-03] MEDS: DEXAMETHASONE SOD PHOSPHATE 10 MG/ML VIAL IVP SCH (20:24)
[2022-06-03] MEDS: NOREPINEPHRINE BITARTRATE 8 MG in D5W 242 ML IV PRN (20:28)
[2022-06-04] VITALS (31 sets, daily range): BP systolic 90–126
[2022-06-04] MEDS: NORMAL SALINE 5 ML DISP.SYRIN IVF SCH ×3 (05:27→20:55)
[2022-06-04 06:34] LABS: BASOPHILS % (AUTO) 0.1 % (0.0-2.0); HEMATOCRIT 40.5 % (36-48); HEMOGLOBIN 12.9 g/dL (12.0-16.0); LYMPHOCYTES # (AUTO) 0.5 K/uL (1.0-5.5); LYMPHOCYTES % (AUTO) 5.5 % (20.5-51.5); MEAN CORPUSCULAR HEMOGLOBIN 28 pg (27-31); MEAN CORPUSCULAR HGB CONC 32 % (32-36); MEAN CORPUSCULAR VOLUME 88 fL (79.0-98.0); MONOCYTES # (AUTO) 0.4 K/uL (0.0-1.0); MONOCYTES % (AUTO) 4.2 % (1.7-9.3); NEUTROPHILS # (AUTO) 8.2 K/uL (1.8-7.7); NEUTROPHILS % (AUTO) 90.2 % (40.0-70.0); PLATELET COUNT (AUTO) 53 K/uL (130-430); RED BLOOD CELL COUNT(AUTO) 4.58 MIL/uL (4.2-6.2); RED CELL DISTRIBUTION WIDTH 20.1 % (9.0-15.0); WHITE BLOOD COUNT (AUTO) 9.1 K/uL (4.8-10.8)
[2022-06-04 06:40] LABS: INR 2.4 (0.8-1.2); PROTHROMBIN TIME 23.5 SECS (9.5-12.5)
[2022-06-04 07:07] LABS: C-REACTIVE PROTEIN QUANT 0.6 mg/dL (0-0.5); CALCIUM 8.6 mg/dL (8.4-11.0); CREATININE 0.81 mg/dL (0.55-1.30)
[2022-06-04] MEDS ORDERED: GLUCOSE (DEXTROSE) ORAL GEL -Adults PO PRN (08:15)
[2022-06-04] MEDS ORDERED: DEXTROSE 50%-WATER 50 ML DISP.SYRIN IVP PRN (08:15)
[2022-06-04] MEDS ORDERED: D5W 1,000 ML IV PRN (08:15)
[2022-06-04] MEDS: LACTULOSE 20 GM/30 ML UDC PO SCH (08:37)
[2022-06-04] MEDS: CEFEPIME 2 GM in D5W 100 ML IV SCH ×2 (08:37→20:54)
[2022-06-04] MEDS: ERGOCALCIFEROL 8000 UNITS/ML ORAL SOLUTION, 60 ML BOTTLE GT SCH (08:37)
[2022-06-04] MEDS: VITAMIN B COMPLEX 1 CAP/TAB GT SCH (08:38)
[2022-06-04] MEDS: SPIRONOLACTONE 50 MG TABLET (ALDACTONE) PO SCH ×2 (08:38→20:53)
[2022-06-04] MEDS ORDERED: INSULIN GLARGINE 100 UNITS/ML, 10 ML VIAL SUBCUT SCH (09:00)
[2022-06-04] MEDS: PROPRANOLOL HCL 10 MG TABLET (INDERAL) PO SCH ×3 (09:00→20:54)
[2022-06-04] MEDS: AZITHROMYCIN 250 MG in NS 250 ML IV SCH (09:48)
[2022-06-04 10:32] LABS: ERYTHROCYTE SEDIMENTATION RATE 2 MM/HR (0-20)
[2022-06-04] MEDS: INSULIN REGULAR, HUMAN 100 UNITS/ML, 3 ML VIAL (humuLIN R) SUBCUT PRN ×2 (11:51→17:07)
[2022-06-04] MEDS: DEXAMETHASONE SOD PHOSPHATE 10 MG/ML VIAL IVP SCH (20:54)
[2022-06-05] VITALS (24 sets, daily range): BP systolic 90–142
[2022-06-05] MEDS: INSULIN REGULAR, HUMAN 100 UNITS/ML, 3 ML VIAL (humuLIN R) SUBCUT PRN ×5 (03:49→23:59)
[2022-06-05] MEDS: NORMAL SALINE 5 ML DISP.SYRIN IVF SCH ×3 (05:29→21:55)
[2022-06-05 06:26] LABS: INR 2.6 (0.8-1.2); PROTHROMBIN TIME 24.7 SECS (9.5-12.5)
[2022-06-05 06:33] LABS: BASOPHILS # (AUTO) 0.1 K/uL (0.0-0.2); BASOPHILS % (AUTO) 0.7 % (0.0-2.0); EOSINOPHILS % (AUTO) 0.3 % (0.0-4.0); HEMOGLOBIN 12.2 g/dL (12.0-16.0); LYMPHOCYTES # (AUTO) 0.6 K/uL (1.0-5.5); LYMPHOCYTES % (AUTO) 7.6 % (20.5-51.5); MEAN CORPUSCULAR HEMOGLOBIN 29 pg (27-31); MEAN CORPUSCULAR HGB CONC 33 % (32-36); MEAN CORPUSCULAR VOLUME 88 fL (79.0-98.0); MONOCYTES # (AUTO) 0.3 K/uL (0.0-1.0); MONOCYTES % (AUTO) 3.9 % (1.7-9.3); NEUTROPHILS # (AUTO) 7.3 K/uL (1.8-7.7); NEUTROPHILS % (AUTO) 87.5 % (40.0-70.0); RED BLOOD CELL COUNT(AUTO) 4.22 MIL/uL (4.2-6.2); RED CELL DISTRIBUTION WIDTH 20.3 % (9.0-15.0); WHITE BLOOD COUNT (AUTO) 8.4 K/uL (4.8-10.8)
[2022-06-05 06:34] LABS: ALBUMIN 1.7 g/dL (3.4-4.8); C-REACTIVE PROTEIN QUANT 0.6 mg/dL (0-0.5); CALCIUM 8.5 mg/dL (8.4-11.0); CREATININE 0.68 mg/dL (0.55-1.30); TOTAL BILIRUBIN 3.4 mg/dL (0.0-1.0)
[2022-06-05 07:00] LABS: PLATELET COUNT (AUTO) 47 K/uL (130-430)
[2022-06-05 08:29] LABS: ERYTHROCYTE SEDIMENTATION RATE 3 MM/HR (0-20)
[2022-06-05] MEDS: LACTULOSE 20 GM/30 ML UDC PO SCH (08:40)
[2022-06-05] MEDS: VITAMIN B COMPLEX 1 CAP/TAB GT SCH (08:40)
[2022-06-05] MEDS: ASCORBIC ACID 500 MG TABLET NG SCH (08:41)
[2022-06-05] MEDS: CEFEPIME 2 GM in D5W 100 ML IV SCH ×2 (08:41→20:04)
[2022-06-05] MEDS: ERGOCALCIFEROL 8000 UNITS/ML ORAL SOLUTION, 60 ML BOTTLE GT SCH (08:41)
[2022-06-05] MEDS: FUROSEMIDE 40 MG/4 ML VIAL IVP SCH (08:42)
[2022-06-05] MEDS: SPIRONOLACTONE 50 MG TABLET (ALDACTONE) PO SCH ×2 (08:46→20:02)
[2022-06-05] MEDS: PROPRANOLOL HCL 10 MG TABLET (INDERAL) PO SCH ×3 (08:46→20:07)
[2022-06-05] MEDS ORDERED: INSULIN GLARGINE 100 UNITS/ML, 10 ML VIAL SUBCUT SCH (09:00)
[2022-06-05] MEDS ORDERED: INSULIN GLARGINE 100 UNITS/ML, 10 ML VIAL SUBCUT ONE (09:00)
[2022-06-05] MEDS: DEXAMETHASONE SOD PHOSPHATE 10 MG/ML VIAL IVP SCH (20:01)
[2022-06-05] MEDS: INSULIN GLARGINE 100 UNITS/ML, 10 ML VIAL SUBCUT SCH (20:34)
[2022-06-06] VITALS (23 sets, daily range): BP systolic 97–140
[2022-06-06 06:21] LABS: C-REACTIVE PROTEIN QUANT 0.8 mg/dL (0-0.5); CALCIUM 9.1 mg/dL (8.4-11.0); CREATININE 0.67 mg/dL (0.55-1.30)
[2022-06-06 06:24] LABS: BASOPHILS % (AUTO) 0.1 % (0.0-2.0); HEMATOCRIT 38.7 % (36-48); HEMOGLOBIN 12.3 g/dL (12.0-16.0); LYMPHOCYTES # (AUTO) 0.8 K/uL (1.0-5.5); LYMPHOCYTES % (AUTO) 5.4 % (20.5-51.5); MEAN CORPUSCULAR HEMOGLOBIN 28 pg (27-31); MEAN CORPUSCULAR HGB CONC 32 % (32-36); MEAN CORPUSCULAR VOLUME 89 fL (79.0-98.0); MONOCYTES # (AUTO) 0.5 K/uL (0.0-1.0); MONOCYTES % (AUTO) 3.1 % (1.7-9.3); NEUTROPHILS # (AUTO) 13.4 K/uL (1.8-7.7); NEUTROPHILS % (AUTO) 91.4 % (40.0-70.0); RED BLOOD CELL COUNT(AUTO) 4.37 MIL/uL (4.2-6.2); WHITE BLOOD COUNT (AUTO) 14.7 K/uL (4.8-10.8)
[2022-06-06] MEDS: NORMAL SALINE 5 ML DISP.SYRIN IVF SCH ×3 (06:28→20:49)
[2022-06-06 06:29] LABS: PLATELET COUNT (AUTO) 27 K/uL (130-430)
[2022-06-06] MEDS: INSULIN REGULAR, HUMAN 100 UNITS/ML, 3 ML VIAL (humuLIN R) SUBCUT PRN (06:31)
[2022-06-06 07:36] LABS: ERYTHROCYTE SEDIMENTATION RATE 3 MM/HR (0-20)
[2022-06-06 07:53] LABS: INR 2.4 (0.8-1.2); PROTHROMBIN TIME 23.2 SECS (9.5-12.5)
[2022-06-06] MEDS: ERGOCALCIFEROL 8000 UNITS/ML ORAL SOLUTION, 60 ML BOTTLE GT SCH (09:00)
[2022-06-06] MEDS: PROPRANOLOL HCL 10 MG TABLET (INDERAL) PO SCH ×3 (09:00→20:49)
[2022-06-06] MEDS: SPIRONOLACTONE 50 MG TABLET (ALDACTONE) PO SCH ×2 (09:00→20:48)
[2022-06-06] MEDS: LACTULOSE 20 GM/30 ML UDC PO SCH (09:00)
[2022-06-06] MEDS: ASCORBIC ACID 500 MG TABLET NG SCH (09:00)
[2022-06-06] MEDS: VITAMIN B COMPLEX 1 CAP/TAB GT SCH (09:00)
[2022-06-06] MEDS: INSULIN GLARGINE 100 UNITS/ML, 10 ML VIAL SUBCUT SCH ×2 (09:00→20:46)
[2022-06-06] MEDS: CEFEPIME 2 GM in D5W 100 ML IV SCH ×2 (09:01→20:45)
[2022-06-06] MEDS: D5/0.45 NS 1,000 ML IV SCH ×2 (09:45→19:45)
[2022-06-06] MEDS: DEXAMETHASONE SOD PHOSPHATE 10 MG/ML VIAL IVP SCH (20:45)
[2022-06-06] MEDS: LORazepam 2 MG/ML VIAL IV PRN (21:31)
[2022-06-07] VITALS (21 sets, daily range): BP systolic 99–158
[2022-06-07] MEDS: INSULIN REGULAR, HUMAN 100 UNITS/ML, 3 ML VIAL (humuLIN R) SUBCUT PRN ×5 (01:11→18:37)
[2022-06-07] MEDS: D5/0.45 NS 1,000 ML IV SCH ×2 (05:45→15:15)
[2022-06-07] MEDS: NORMAL SALINE 5 ML DISP.SYRIN IVF SCH ×2 (06:00→14:39)
[2022-06-07 06:25] LABS: ALBUMIN 1.8 g/dL (3.4-4.8); CALCIUM 9.2 mg/dL (8.4-11.0); CREATININE 0.57 mg/dL (0.55-1.30); TOTAL BILIRUBIN 5.5 mg/dL (0.0-1.0)
[2022-06-07 06:30] LABS: BASOPHILS % (AUTO) 0.3 % (0.0-2.0); HEMATOCRIT 34.8 % (36-48); HEMOGLOBIN 11.4 g/dL (12.0-16.0); LYMPHOCYTES # (AUTO) 0.5 K/uL (1.0-5.5); LYMPHOCYTES % (AUTO) 8.8 % (20.5-51.5); MEAN CORPUSCULAR HEMOGLOBIN 29 pg (27-31); MEAN CORPUSCULAR HGB CONC 33 % (32-36); MEAN CORPUSCULAR VOLUME 88 fL (79.0-98.0); MONOCYTES # (AUTO) 0.2 K/uL (0.0-1.0); NEUTROPHILS # (AUTO) 5.3 K/uL (1.8-7.7); RED BLOOD CELL COUNT(AUTO) 3.93 MIL/uL (4.2-6.2); RED CELL DISTRIBUTION WIDTH 21.2 % (9.0-15.0); WHITE BLOOD COUNT (AUTO) 6.1 K/uL (4.8-10.8)
[2022-06-07 06:57] LABS: PLATELET COUNT (AUTO) 17 K/uL (130-430)
[2022-06-07] MEDS: ERGOCALCIFEROL 8000 UNITS/ML ORAL SOLUTION, 60 ML BOTTLE GT SCH (10:37)
[2022-06-07] MEDS: VITAMIN B COMPLEX 1 CAP/TAB GT SCH (10:37)
[2022-06-07] MEDS: CEFEPIME 2 GM in D5W 100 ML IV SCH ×2 (10:38→20:37)
[2022-06-07] MEDS: ASCORBIC ACID 500 MG TABLET NG SCH (10:39)
[2022-06-07] MEDS: SPIRONOLACTONE 50 MG TABLET (ALDACTONE) PO SCH ×2 (10:40→20:39)
[2022-06-07] MEDS: LACTULOSE 20 GM/30 ML UDC PO SCH (10:40)
[2022-06-07 10:42] LABS: NEUTROPHILS % (AUTO) 87.9 % (40.0-70.0)
[2022-06-07] MEDS: CHOLECALCIFEROL (VITAMIN D3) 2,000 UNIT TABLET PO SCH ×2 (10:42→20:40)
[2022-06-07] MEDS: PROPRANOLOL HCL 10 MG TABLET (INDERAL) PO SCH ×3 (10:42→20:39)
[2022-06-07] MEDS: INSULIN GLARGINE 100 UNITS/ML, 10 ML VIAL SUBCUT SCH ×2 (10:47→20:35)
[2022-06-07] MEDS: DEXAMETHASONE SOD PHOSPHATE 10 MG/ML VIAL IVP SCH (20:36)
[2022-06-08] VITALS (7 sets, daily range): BP systolic 92–158
[2022-06-08] MEDS: NORMAL SALINE 5 ML DISP.SYRIN IVF SCH ×4 (01:10→21:09)
[2022-06-08] MEDS: D5/0.45 NS 1,000 ML IV SCH ×3 (01:13→21:08)
[2022-06-08] MEDS: INSULIN REGULAR, HUMAN 100 UNITS/ML, 3 ML VIAL (humuLIN R) SUBCUT PRN ×4 (02:45→19:46)
[2022-06-08 07:28] LABS: INR 2.6 (0.8-1.2); PROTHROMBIN TIME 24.5 SECS (9.5-12.5)
[2022-06-08 07:40] LABS: ANION GAP 4 (5-15); CALCIUM 9.3 mg/dL (8.4-11.0); CHLORIDE 117 mmol/L (98-107); CREATININE 0.41 mg/dL (0.55-1.30); GLUCOSE 175 mg/dL (70-99); UREA NITROGEN, BLOOD 31 mg/dL (8-21)
[2022-06-08 07:41] LABS: GFR AFRICAN AMERICAN 210 mL/min (>90)
[2022-06-08 07:42] LABS: C-REACTIVE PROTEIN QUANT < 0.2 mg/dL (0-0.5)
[2022-06-08 08:25] LABS: BASOPHILS % (AUTO) 0.1 % (0.0-2.0); HEMATOCRIT 34.4 % (36-48); HEMOGLOBIN 11.1 g/dL (12.0-16.0); LYMPHOCYTES # (AUTO) 0.2 K/uL (1.0-5.5); LYMPHOCYTES % (AUTO) 2.3 % (20.5-51.5); MEAN CORPUSCULAR HEMOGLOBIN 29 pg (27-31); MEAN CORPUSCULAR HGB CONC 32 % (32-36); MEAN CORPUSCULAR VOLUME 90 fL (79.0-98.0); MONOCYTES # (AUTO) 0.3 K/uL (0.0-1.0); MONOCYTES % (AUTO) 3.7 % (1.7-9.3); NEUTROPHILS # (AUTO) 8.7 K/uL (1.8-7.7); NEUTROPHILS % (AUTO) 93.9 % (40.0-70.0); RED BLOOD CELL COUNT(AUTO) 3.82 MIL/uL (4.2-6.2); RED CELL DISTRIBUTION WIDTH 20.8 % (9.0-15.0); WHITE BLOOD COUNT (AUTO) 9.3 K/uL (4.8-10.8)
[2022-06-08] MEDS: CHOLECALCIFEROL (VITAMIN D3) 2,000 UNIT TABLET PO SCH ×2 (09:00→21:00)
[2022-06-08] MEDS: ASCORBIC ACID 500 MG TABLET NG SCH (09:00)
[2022-06-08] MEDS: VITAMIN B COMPLEX 1 CAP/TAB GT SCH (09:00)
[2022-06-08] MEDS: ERGOCALCIFEROL 8000 UNITS/ML ORAL SOLUTION, 60 ML BOTTLE GT SCH (09:00)
[2022-06-08] MEDS: LACTULOSE 20 GM/30 ML UDC PO SCH (09:00)
[2022-06-08] MEDS: SPIRONOLACTONE 50 MG TABLET (ALDACTONE) PO SCH ×2 (09:00→21:00)
[2022-06-08] MEDS: PROPRANOLOL HCL 10 MG TABLET (INDERAL) PO SCH ×3 (09:00→21:00)
[2022-06-08] MEDS: CEFEPIME 2 GM in D5W 100 ML IV SCH ×2 (10:05→21:01)
[2022-06-08 10:30] LABS: PLATELET COUNT (AUTO) 30 K/uL (130-430)
[2022-06-08] MEDS: INSULIN GLARGINE 100 UNITS/ML, 10 ML VIAL SUBCUT SCH ×2 (10:36→22:13)
[2022-06-08 12:09] LABS: ERYTHROCYTE SEDIMENTATION RATE 5 MM/HR (0-20)
[2022-06-08] MEDS: DEXAMETHASONE SOD PHOSPHATE 10 MG/ML VIAL IVP SCH (21:00)
[2022-06-09 00:56] VITALS: BP_SYST 125
[2022-06-09] MEDS: NORMAL SALINE 5 ML DISP.SYRIN IVF SCH ×3 (06:56→20:40)
[2022-06-09] MEDS: INSULIN REGULAR, HUMAN 100 UNITS/ML, 3 ML VIAL (humuLIN R) SUBCUT PRN ×4 (07:01→18:38)
[2022-06-09 07:16] LABS: ALBUMIN 1.7 g/dL (3.4-4.8); CREATININE 0.5 mg/dL (0.55-1.30); TOTAL BILIRUBIN 6.3 mg/dL (0.0-1.0)
[2022-06-09 07:41] LABS: BASOPHILS % (AUTO) 0.3 % (0.0-2.0); HEMATOCRIT 35.3 % (36-48); HEMOGLOBIN 11.2 g/dL (12.0-16.0); LYMPHOCYTES # (AUTO) 0.3 K/uL (1.0-5.5); LYMPHOCYTES % (AUTO) 3.3 % (20.5-51.5); MEAN CORPUSCULAR HEMOGLOBIN 29 pg (27-31); MEAN CORPUSCULAR HGB CONC 32 % (32-36); MEAN CORPUSCULAR VOLUME 91 fL (79.0-98.0); MONOCYTES # (AUTO) 0.3 K/uL (0.0-1.0); MONOCYTES % (AUTO) 3.6 % (1.7-9.3); NEUTROPHILS # (AUTO) 7.1 K/uL (1.8-7.7); NEUTROPHILS % (AUTO) 92.8 % (40.0-70.0); RED BLOOD CELL COUNT(AUTO) 3.88 MIL/uL (4.2-6.2); RED CELL DISTRIBUTION WIDTH 20.5 % (9.0-15.0); WHITE BLOOD COUNT (AUTO) 7.7 K/uL (4.8-10.8)
[2022-06-09 07:59] VITALS: BP_SYST 131
[2022-06-09 08:32] LABS: PLATELET COUNT (AUTO) 16 K/uL (130-430)
[2022-06-09] MEDS: ERGOCALCIFEROL 8000 UNITS/ML ORAL SOLUTION, 60 ML BOTTLE GT SCH (09:00)
[2022-06-09] MEDS: D5/0.45 NS 1,000 ML IV SCH ×2 (09:31→17:23)
[2022-06-09] MEDS: VITAMIN B COMPLEX 1 CAP/TAB GT SCH (09:31)
[2022-06-09] MEDS: LACTULOSE 20 GM/30 ML UDC PO SCH (09:31)
[2022-06-09] MEDS: ASCORBIC ACID 500 MG TABLET NG SCH (09:32)
[2022-06-09] MEDS: SPIRONOLACTONE 50 MG TABLET (ALDACTONE) PO SCH ×2 (09:32→20:39)
[2022-06-09] MEDS: CHOLECALCIFEROL (VITAMIN D3) 2,000 UNIT TABLET PO SCH ×2 (09:32→20:40)
[2022-06-09] MEDS: CEFEPIME 2 GM in D5W 100 ML IV SCH ×2 (09:32→20:39)
[2022-06-09] MEDS: PROPRANOLOL HCL 10 MG TABLET (INDERAL) PO SCH ×3 (09:32→20:40)
[2022-06-09] MEDS: INSULIN GLARGINE 100 UNITS/ML, 10 ML VIAL SUBCUT SCH ×2 (09:39→21:00)
[2022-06-09 12:02] VITALS: BP_SYST 120
[2022-06-09] MEDS ORDERED: PHYTONADIONE 10 MG in NS 50 ML IV ONE (15:00)
[2022-06-09 17:28] VITALS: BP_SYST 130
[2022-06-09 20:00] VITALS: BP_SYST 129
[2022-06-09] MEDS: DEXAMETHASONE SOD PHOSPHATE 10 MG/ML VIAL IVP SCH (20:35)
[2022-06-10] VITALS: BP_SYST 111
[2022-06-10] MEDS: D5/0.45 NS 1,000 ML IV SCH (03:45)
[2022-06-10] MEDS: NORMAL SALINE 5 ML DISP.SYRIN IVF SCH ×3 (06:18→21:01)
[2022-06-10] MEDS: INSULIN REGULAR, HUMAN 100 UNITS/ML, 3 ML VIAL (humuLIN R) SUBCUT PRN ×4 (06:24→23:31)
[2022-06-10 07:30] LABS: BASOPHILS % (AUTO) 0.5 % (0.0-2.0); HEMATOCRIT 33.9 % (36-48); HEMOGLOBIN 10.9 g/dL (12.0-16.0); LYMPHOCYTES # (AUTO) 0.3 K/uL (1.0-5.5); LYMPHOCYTES % (AUTO) 3.8 % (20.5-51.5); MEAN CORPUSCULAR HEMOGLOBIN 29 pg (27-31); MEAN CORPUSCULAR HGB CONC 32 % (32-36); MEAN CORPUSCULAR VOLUME 91 fL (79.0-98.0); MONOCYTES % (AUTO) 0.6 % (1.7-9.3); NEUTROPHILS # (AUTO) 7.6 K/uL (1.8-7.7); NEUTROPHILS % (AUTO) 95.1 % (40.0-70.0); RED BLOOD CELL COUNT(AUTO) 3.72 MIL/uL (4.2-6.2); RED CELL DISTRIBUTION WIDTH 21.5 % (9.0-15.0)
[2022-06-10 08:00] VITALS: BP_SYST 128
[2022-06-10] MEDS: VITAMIN B COMPLEX 1 CAP/TAB GT SCH (09:34)
[2022-06-10] MEDS: CEFEPIME 2 GM in D5W 100 ML IV SCH ×2 (09:34→20:58)
[2022-06-10] MEDS: LACTULOSE 20 GM/30 ML UDC PO SCH (09:35)
[2022-06-10] MEDS: CHOLECALCIFEROL (VITAMIN D3) 2,000 UNIT TABLET PO SCH ×2 (09:35→21:00)
[2022-06-10] MEDS: ASCORBIC ACID 500 MG TABLET NG SCH (09:35)
[2022-06-10] MEDS: PROPRANOLOL HCL 10 MG TABLET (INDERAL) PO SCH ×3 (09:35→20:59)
[2022-06-10] MEDS: SPIRONOLACTONE 50 MG TABLET (ALDACTONE) PO SCH ×2 (09:35→20:59)
[2022-06-10 09:38] LABS: INR 2.5 (0.8-1.2)
[2022-06-10] MEDS: INSULIN GLARGINE 100 UNITS/ML, 10 ML VIAL SUBCUT SCH ×2 (09:41→21:21)
[2022-06-10 13:21] LABS: PLATELET COUNT (AUTO) 17 K/uL (130-430)
[2022-06-10 13:37] VITALS: BP_SYST 114
[2022-06-10 17:33] VITALS: BP_SYST 92
[2022-06-10 20:00] VITALS: BP_SYST 107
[2022-06-10] MEDS: DEXAMETHASONE SOD PHOSPHATE 10 MG/ML VIAL IVP SCH (20:56)
[2022-06-11 04:00] VITALS: BP_SYST 148
[2022-06-11] MEDS: NORMAL SALINE 5 ML DISP.SYRIN IVF SCH ×3 (07:01→21:36)
[2022-06-11 07:22] LABS: C-REACTIVE PROTEIN QUANT 0.7 mg/dL (0-0.5); CALCIUM 9.4 mg/dL (8.4-11.0); CREATININE 0.53 mg/dL (0.55-1.30)
[2022-06-11 08:09] VITALS: BP_SYST 107
[2022-06-11 08:09] LABS: BASOPHILS # (AUTO) 0.1 K/uL (0.0-0.2); BASOPHILS % (AUTO) 0.3 % (0.0-2.0); HEMATOCRIT 37.2 % (36-48); HEMOGLOBIN 12.2 g/dL (12.0-16.0); LYMPHOCYTES # (AUTO) 0.7 K/uL (1.0-5.5); LYMPHOCYTES % (AUTO) 4.3 % (20.5-51.5); MEAN CORPUSCULAR HEMOGLOBIN 30 pg (27-31); MEAN CORPUSCULAR HGB CONC 33 % (32-36); MEAN CORPUSCULAR VOLUME 91 fL (79.0-98.0); MONOCYTES # (AUTO) 0.4 K/uL (0.0-1.0); MONOCYTES % (AUTO) 2.6 % (1.7-9.3); NEUTROPHILS # (AUTO) 14.8 K/uL (1.8-7.7); NEUTROPHILS % (AUTO) 92.8 % (40.0-70.0); RED BLOOD CELL COUNT(AUTO) 4.09 MIL/uL (4.2-6.2); RED CELL DISTRIBUTION WIDTH 21.1 % (9.0-15.0); WHITE BLOOD COUNT (AUTO) 15.9 K/uL (4.8-10.8)
[2022-06-11] MEDS: ASCORBIC ACID 500 MG TABLET NG SCH (08:16)
[2022-06-11] MEDS: CEFEPIME 2 GM in D5W 100 ML IV SCH (08:16)
[2022-06-11] MEDS: PROPRANOLOL HCL 10 MG TABLET (INDERAL) PO SCH ×3 (08:19→20:44)
[2022-06-11] MEDS: SPIRONOLACTONE 50 MG TABLET (ALDACTONE) PO SCH ×2 (08:19→20:43)
[2022-06-11] MEDS: LACTULOSE 20 GM/30 ML UDC PO SCH (08:19)
[2022-06-11] MEDS: VITAMIN B COMPLEX 1 CAP/TAB GT SCH (08:19)
[2022-06-11] MEDS: CHOLECALCIFEROL (VITAMIN D3) 2,000 UNIT TABLET PO SCH ×2 (08:20→20:44)
[2022-06-11] MEDS: INSULIN GLARGINE 100 UNITS/ML, 10 ML VIAL SUBCUT SCH ×2 (08:25→21:33)
[2022-06-11 09:13] LABS: PLATELET COUNT (AUTO) 24 K/uL (130-430)
[2022-06-11 11:06] LABS: ERYTHROCYTE SEDIMENTATION RATE 5 MM/HR (0-20)
[2022-06-11 11:07] VITALS: BP_SYST 138
[2022-06-11 15:38] VITALS: BP_SYST 129
[2022-06-11] MEDS: INSULIN REGULAR, HUMAN 100 UNITS/ML, 3 ML VIAL (humuLIN R) SUBCUT PRN ×2 (17:00→21:35)
[2022-06-11 20:00] VITALS: BP_SYST 134
[2022-06-11] MEDS: DEXAMETHASONE SOD PHOSPHATE 10 MG/ML VIAL IVP SCH (20:43)
[2022-06-12 01:11] VITALS: BP_SYST 116
[2022-06-12] MEDS: NORMAL SALINE 5 ML DISP.SYRIN IVF SCH ×3 (05:46→22:47)
[2022-06-12 06:49] LABS: BASOPHILS % (AUTO) 0.1 % (0.0-2.0); HEMATOCRIT 33.9 % (36-48); HEMOGLOBIN 11.2 g/dL (12.0-16.0); LYMPHOCYTES # (AUTO) 0.3 K/uL (1.0-5.5); LYMPHOCYTES % (AUTO) 1.8 % (20.5-51.5); MEAN CORPUSCULAR HEMOGLOBIN 30 pg (27-31); MEAN CORPUSCULAR HGB CONC 33 % (32-36); MEAN CORPUSCULAR VOLUME 90 fL (79.0-98.0); MONOCYTES # (AUTO) 0.4 K/uL (0.0-1.0); MONOCYTES % (AUTO) 2.1 % (1.7-9.3); NEUTROPHILS # (AUTO) 18.2 K/uL (1.8-7.7); RED BLOOD CELL COUNT(AUTO) 3.76 MIL/uL (4.2-6.2)
[2022-06-12 07:51] LABS: ALBUMIN 1.6 g/dL (3.4-4.8); C-REACTIVE PROTEIN QUANT 1.6 mg/dL (0-0.5); CALCIUM 9.2 mg/dL (8.4-11.0); CREATININE 0.64 mg/dL (0.55-1.30); TOTAL BILIRUBIN 7.7 mg/dL (0.0-1.0)
[2022-06-12 08:00] VITALS: BP_SYST 121
[2022-06-12 08:42] LABS: PLATELET COUNT (AUTO) 14 K/uL (130-430)
[2022-06-12 08:46] LABS: ERYTHROCYTE SEDIMENTATION RATE 3 MM/HR (0-20)
[2022-06-12] MEDS: ASCORBIC ACID 500 MG TABLET NG SCH (08:54)
[2022-06-12] MEDS: SPIRONOLACTONE 50 MG TABLET (ALDACTONE) PO SCH ×2 (08:55→22:44)
[2022-06-12] MEDS: PROPRANOLOL HCL 10 MG TABLET (INDERAL) PO SCH ×3 (08:55→22:45)
[2022-06-12] MEDS: VITAMIN B COMPLEX 1 CAP/TAB GT SCH (08:56)
[2022-06-12] MEDS: LACTULOSE 20 GM/30 ML UDC PO SCH (08:57)
[2022-06-12] MEDS: CHOLECALCIFEROL (VITAMIN D3) 2,000 UNIT TABLET PO SCH ×2 (08:57→22:46)
[2022-06-12] MEDS: INSULIN GLARGINE 100 UNITS/ML, 10 ML VIAL SUBCUT SCH ×2 (09:00→23:04)
[2022-06-12 11:35] VITALS: BP_SYST 123
[2022-06-12] MEDS: INSULIN REGULAR, HUMAN 100 UNITS/ML, 3 ML VIAL (humuLIN R) SUBCUT PRN ×3 (12:58→23:06)
[2022-06-12 16:20] VITALS: BP_SYST 124
[2022-06-12 20:00] VITALS: BP_SYST 112
[2022-06-12] MEDS: DEXAMETHASONE SOD PHOSPHATE 10 MG/ML VIAL IVP SCH (22:43)
[2022-06-13 00:15] VITALS: BP_SYST 108
[2022-06-13] MEDS: NORMAL SALINE 5 ML DISP.SYRIN IVF SCH ×3 (06:40→20:27)
[2022-06-13 07:39] LABS: C-REACTIVE PROTEIN QUANT 4.7 mg/dL (0-0.5); CALCIUM 9.6 mg/dL (8.4-11.0); CREATININE 0.66 mg/dL (0.55-1.30)
[2022-06-13 07:47] LABS: HEMATOCRIT 33.9 % (36-48); HEMOGLOBIN 11.1 g/dL (12.0-16.0); MEAN CORPUSCULAR HEMOGLOBIN 30 pg (27-31); MEAN CORPUSCULAR HGB CONC 33 % (32-36); MEAN CORPUSCULAR VOLUME 93 fL (79.0-98.0); RED BLOOD CELL COUNT(AUTO) 3.64 MIL/uL (4.2-6.2); RED CELL DISTRIBUTION WIDTH 26.5 % (9.0-15.0); WHITE BLOOD COUNT (AUTO) 23.4 K/uL (4.8-10.8)
[2022-06-13 08:00] VITALS: BP_SYST 118
[2022-06-13] MEDS: LACTULOSE 20 GM/30 ML UDC PO SCH (08:56)
[2022-06-13] MEDS: VITAMIN B COMPLEX 1 CAP/TAB GT SCH (08:56)
[2022-06-13] MEDS: SPIRONOLACTONE 50 MG TABLET (ALDACTONE) PO SCH ×2 (08:58→20:27)
[2022-06-13] MEDS: ASCORBIC ACID 500 MG TABLET NG SCH (08:58)
[2022-06-13] MEDS: PROPRANOLOL HCL 10 MG TABLET (INDERAL) PO SCH ×3 (08:59→20:26)
[2022-06-13] MEDS: CHOLECALCIFEROL (VITAMIN D3) 2,000 UNIT TABLET PO SCH ×2 (08:59→20:26)
[2022-06-13] MEDS: INSULIN GLARGINE 100 UNITS/ML, 10 ML VIAL SUBCUT SCH ×2 (09:01→21:00)
[2022-06-13 09:09] LABS: PLATELET COUNT (AUTO) 16 K/uL (130-430)
[2022-06-13 10:42] VITALS: BP_SYST 108
[2022-06-13 10:47] LABS: ERYTHROCYTE SEDIMENTATION RATE 3 MM/HR (0-20)
[2022-06-13] MEDS: IPRATROPIUM BROM 0.5 MG/2.5 ML VIAL.NEB (ATROVENT) INH SCH ×2 (11:00→15:00)
[2022-06-13] MEDS ORDERED: ALBUTEROL SULFATE 0.083% 2.5 MG/3 ML VIAL.NEB INH SCH (11:00)
[2022-06-13 11:34] LABS: BAND % (MANUAL) 8 % (0-6); BASOPHILS % (MANUAL) 0 % (0-2); EOSINOPHILS % (MANUAL) 0 % (0-7); LYMPHOCYTES % (MANUAL) 1 % (20-46); MONOCYTES % (MANUAL) 1 % (0-11)
[2022-06-13 12:05] VITALS: BP_SYST 139
[2022-06-13 15:50] VITALS: BP_SYST 98
[2022-06-13 20:00] VITALS: BP_SYST 108
[2022-06-13] MEDS: ALBUTEROL MDI INHALATION 8 GM INH INH SCH (20:54)
[2022-06-14] VITALS: BP_SYST 99
[2022-06-14] MEDS: NORMAL SALINE 5 ML DISP.SYRIN IVF SCH ×3 (05:25→22:13)
[2022-06-14 06:46] LABS: ALBUMIN 1.2 g/dL (3.4-4.8); CALCIUM 9.5 mg/dL (8.4-11.0); CREATININE 0.8 mg/dL (0.55-1.30)
[2022-06-14] MEDS: ALBUTEROL MDI INHALATION 8 GM INH INH SCH ×4 (07:45→19:43)
[2022-06-14 07:56] LABS: TOTAL BILIRUBIN 9.6 mg/dL (0.0-1.0)
[2022-06-14 08:00] VITALS: BP_SYST 95
[2022-06-14 08:01] LABS: HEMATOCRIT 30.9 % (36-48); MEAN CORPUSCULAR HEMOGLOBIN 31 pg (27-31); MEAN CORPUSCULAR HGB CONC 32 % (32-36); MEAN CORPUSCULAR VOLUME 95 fL (79.0-98.0); RED BLOOD CELL COUNT(AUTO) 3.27 MIL/uL (4.2-6.2); RED CELL DISTRIBUTION WIDTH 27.5 % (9.0-15.0); WHITE BLOOD COUNT (AUTO) 15.2 K/uL (4.8-10.8)
[2022-06-14 08:42] LABS: PLATELET COUNT (AUTO) 15 K/uL (130-430)
[2022-06-14] MEDS: PROPRANOLOL HCL 10 MG TABLET (INDERAL) PO SCH ×3 (09:00→22:12)
[2022-06-14] MEDS: SPIRONOLACTONE 50 MG TABLET (ALDACTONE) PO SCH ×2 (09:00→22:08)
[2022-06-14] MEDS: INSULIN GLARGINE 100 UNITS/ML, 10 ML VIAL SUBCUT SCH ×2 (10:01→22:34)
[2022-06-14] MEDS: LACTULOSE 20 GM/30 ML UDC PO SCH (10:02)
[2022-06-14] MEDS: CHOLECALCIFEROL (VITAMIN D3) 2,000 UNIT TABLET PO SCH ×2 (10:02→22:06)
[2022-06-14] MEDS: ASCORBIC ACID 500 MG TABLET NG SCH (10:02)
[2022-06-14] MEDS: VITAMIN B COMPLEX 1 CAP/TAB GT SCH (10:03)
[2022-06-14 10:26] LABS: ERYTHROCYTE SEDIMENTATION RATE 4 MM/HR (0-20)
[2022-06-14 11:58] LABS: BAND % (MANUAL) 20 % (0-6); BASOPHILS % (MANUAL) 0 % (0-2); EOSINOPHILS % (MANUAL) 0 % (0-7); LYMPHOCYTES % (MANUAL) 3 % (20-46); MONOCYTES % (MANUAL) 1 % (0-11)
[2022-06-14 12:30] VITALS: BP_SYST 110
[2022-06-14 15:20] VITALS: BP_SYST 123
[2022-06-14 16:00] VITALS: BP_SYST 123
[2022-06-14 20:19] VITALS: BP_SYST 112
[2022-06-15] VITALS (17 sets, daily range): BP systolic 63–150
[2022-06-15] MEDS: AMPICILLIN SODIUM/SULBACTAM NA 3 GM in NS 100 ML IV SCH ×2 (00:15→12:00)
[2022-06-15] MEDS ORDERED: VANCOMYCIN HCL 1 GM/NS PREMIX 250 ML IV ONE (00:30)
[2022-06-15] MEDS ORDERED: AMPICILLIN SODIUM/SULBACTAM NA 1.5 GM VIAL ONE (02:16)
[2022-06-15] MEDS ORDERED: VANCOMYCIN HCL 1000 MG/VIAL IV ONE (02:17)
[2022-06-15] MEDS: NORMAL SALINE 5 ML DISP.SYRIN IVF SCH ×3 (06:27→22:00)
[2022-06-15 06:44] LABS: BASOPHILS % (AUTO) 0.2 % (0.0-2.0); EOSINOPHILS % (AUTO) 0.3 % (0.0-4.0); HEMATOCRIT 29.9 % (36-48); HEMOGLOBIN 10.1 g/dL (12.0-16.0); LYMPHOCYTES # (AUTO) 0.4 K/uL (1.0-5.5); LYMPHOCYTES % (AUTO) 7.1 % (20.5-51.5); MEAN CORPUSCULAR HEMOGLOBIN 32 pg (27-31); MEAN CORPUSCULAR HGB CONC 34 % (32-36); MEAN CORPUSCULAR VOLUME 95 fL (79.0-98.0); MONOCYTES # (AUTO) 0.1 K/uL (0.0-1.0); MONOCYTES % (AUTO) 1.1 % (1.7-9.3); NEUTROPHILS # (AUTO) 5.6 K/uL (1.8-7.7); NEUTROPHILS % (AUTO) 91.3 % (40.0-70.0); RED BLOOD CELL COUNT(AUTO) 3.14 MIL/uL (4.2-6.2); RED CELL DISTRIBUTION WIDTH 30.1 % (9.0-15.0); WHITE BLOOD COUNT (AUTO) 6.1 K/uL (4.8-10.8)
[2022-06-15 07:27] LABS: C-REACTIVE PROTEIN QUANT 10.5 mg/dL (0-0.5); CALCIUM 9.5 mg/dL (8.4-11.0); CREATININE 1.04 mg/dL (0.55-1.30)
[2022-06-15] MEDS: CHOLECALCIFEROL (VITAMIN D3) 2,000 UNIT TABLET PO SCH ×2 (09:00→21:00)
[2022-06-15] MEDS: INSULIN GLARGINE 100 UNITS/ML, 10 ML VIAL SUBCUT SCH (09:00)
[2022-06-15] MEDS: SPIRONOLACTONE 50 MG TABLET (ALDACTONE) PO SCH ×2 (09:00→21:00)
[2022-06-15] MEDS: ASCORBIC ACID 500 MG TABLET NG SCH (09:00)
[2022-06-15] MEDS: LACTULOSE 20 GM/30 ML UDC PO SCH (09:00)
[2022-06-15] MEDS: PROPRANOLOL HCL 10 MG TABLET (INDERAL) PO SCH ×3 (09:00→21:00)
[2022-06-15] MEDS: ALBUTEROL MDI INHALATION 8 GM INH INH SCH ×2 (09:21→20:34)
[2022-06-15 09:38] LABS: ERYTHROCYTE SEDIMENTATION RATE 4 MM/HR (0-20)
[2022-06-15] MEDS ORDERED: FENTANYL CITRATE-0.9 % NACL/PF 100 ML IV PRN (10:30)
[2022-06-15] MEDS ORDERED: NOREPINEPHRINE BITARTRATE 4 MG in NS 246 ML IV PRN (10:30)
[2022-06-15] MEDS ORDERED: MIDAZOLAM IN NACL,ISO-OSMOT/PF 100 ML IV PRN (10:30)
[2022-06-15] MEDS ORDERED: ROCURONIUM BROMIDE 10 MG/ML (ZEMURON) ONE (11:14)
[2022-06-15] MEDS ORDERED: ETOMIDATE 20 MG/ 10 ML VIAL (AMIDATE) ONE (11:14)
[2022-06-15] MEDS ORDERED: D5NS 1,000 ML IV SCH (12:15)
[2022-06-15] MEDS ORDERED: FUROSEMIDE 40 MG/4 ML VIAL IVP ONE (12:15)
[2022-06-15 12:21] LABS: PLATELET COUNT (AUTO) 12 K/uL (130-430)
[2022-06-15] MEDS: VANCOMYCIN HCL 750 MG in NS 250 ML IV SCH (13:37)
[2022-06-15] MEDS: NOREPINEPHRINE BITARTRATE 16 MG in D5W 234 ML IV PRN (13:39)
[2022-06-15] MEDS ORDERED: HYDROCORTISONE SOD SUCC 100 MG/2 ML VIAL IVP ONE (14:30)
[2022-06-15] MEDS ORDERED: ALBUMIN HUMAN 25% 100 ML IV ONE (15:00)
[2022-06-15] MEDS ORDERED: ALBUMIN HUMAN 5% 250 ML IV ONE (15:00)
[2022-06-15] MEDS: VASOPRESSIN 40 UNITS in NS 38 ML IV PRN (15:05)
[2022-06-15] MEDS ORDERED: INSULIN LISPRO SLIDING SCALE 100 UNITS/ML, 3 ML VIAL (humaLOG) SUBCUT PRN (21:00)
[2022-06-15] MEDS: HYDROCORTISONE SOD SUCC 100 MG/2 ML VIAL IVP SCH (22:45)
[2022-06-16] VITALS (8 sets, daily range): BP systolic 81–115
[2022-06-16] MEDS: AMPICILLIN SODIUM/SULBACTAM NA 3 GM in NS 100 ML IV SCH ×3 (00:19→12:34)
[2022-06-16] MEDS ORDERED: PHENYLEPHRINE HCL 100 MG in NS 240 ML IV PRN (01:00)
[2022-06-16] MEDS ORDERED: PHENYLEPHRINE HCL 10 MG/ML VIAL (NEOSYNEPHRINE) ONE (01:15)
[2022-06-16] MEDS: VANCOMYCIN HCL 750 MG in NS 250 ML IV SCH ×2 (02:01→14:00)
[2022-06-16] MEDS: NOREPINEPHRINE BITARTRATE 16 MG in D5W 234 ML IV PRN ×4 (02:03→11:49)
[2022-06-16] MEDS: HYDROCORTISONE SOD SUCC 100 MG/2 ML VIAL IVP SCH ×2 (05:14→14:12)
[2022-06-16] MEDS ORDERED: NOREPINEPHRINE 4 MG/4 ML VIAL IV ONE ×2 (06:21→11:46)
[2022-06-16] MEDS: NORMAL SALINE 5 ML DISP.SYRIN IVF SCH ×2 (06:48→14:17)
[2022-06-16] MEDS: VASOPRESSIN 40 UNITS in NS 38 ML IV PRN (06:48)
[2022-06-16 07:26] LABS: HEMATOCRIT 32.6 % (36-48); HEMOGLOBIN 10.2 g/dL (12.0-16.0); MEAN CORPUSCULAR HEMOGLOBIN 32 pg (27-31); MEAN CORPUSCULAR HGB CONC 31 % (32-36); MEAN CORPUSCULAR VOLUME 102 fL (79.0-98.0); RED BLOOD CELL COUNT(AUTO) 3.19 MIL/uL (4.2-6.2); RED CELL DISTRIBUTION WIDTH 31.1 % (9.0-15.0); WHITE BLOOD COUNT (AUTO) 5.6 K/uL (4.8-10.8)
[2022-06-16 07:27] LABS: ALBUMIN 1.3 g/dL (3.4-4.8); C-REACTIVE PROTEIN QUANT 9.6 mg/dL (0-0.5); CALCIUM 9.3 mg/dL (8.4-11.0); CREATININE 2.01 mg/dL (0.55-1.30)
[2022-06-16] MEDS: PROPRANOLOL HCL 10 MG TABLET (INDERAL) PO SCH ×2 (07:42→15:00)
[2022-06-16] MEDS: SPIRONOLACTONE 50 MG TABLET (ALDACTONE) PO SCH (07:42)
[2022-06-16] MEDS: ALBUTEROL MDI INHALATION 8 GM INH INH SCH ×3 (07:52→15:36)
[2022-06-16] MEDS: ASCORBIC ACID 500 MG TABLET NG SCH (09:00)
[2022-06-16] MEDS: LACTULOSE 20 GM/30 ML UDC PO SCH (09:00)
[2022-06-16] MEDS: CHOLECALCIFEROL (VITAMIN D3) 2,000 UNIT TABLET PO SCH (09:00)
[2022-06-16 09:28] LABS: PLATELET COUNT (AUTO) 7 K/uL (130-430)
[2022-06-16 10:21] LABS: ERYTHROCYTE SEDIMENTATION RATE 2 MM/HR (0-20)
[2022-06-16 13:21] LABS: ATYPICAL LYMPHOCYTES % 0 % (0-0); BAND % (MANUAL) 31 % (0-6); BASOPHILS % (MANUAL) 0 % (0-2); EOSINOPHILS % (MANUAL) 0 % (0-7); LYMPHOCYTES % (MANUAL) 9 % (20-46); METAMYELOCYTES % 5 % (0-0); MONOCYTES % (MANUAL) 15 % (0-11); MYELOCYTES % 5 % (0-0)
== END 2022-06-16 16:19 | DRG 720 ==
LOC: SED 15:09 → STU 20:41 → SMU 05-28 13:03 → SIC 05-29 09:14 → STU 06-08 08:04 → SIC 06-15 10:40
PROVIDERS: ADMIT Preventive Medicine Preventive Medicine/Occupational Environmental Medicine; ATTEND Preventive Medicine Preventive Medicine/Occupational Environmental Medicine
PROC: 5A1955Z Respiratory Ventilation, Greater than 96 Consecutive Hours (ICD-10-PCS; principal; 2022-05-29)
PROC: 0W9G3ZZ Drainage of Peritoneal Cavity, Percutaneous Approach (ICD-10-PCS; 2022-05-29)
PROC: BW40ZZZ Ultrasonography of Abdomen (ICD-10-PCS; 2022-05-29)
PROC: 30233N1 Transfusion of Nonautologous Red Blood Cells into Peripheral Vein, Percutaneous Approach (ICD-10-PCS; 2022-05-29)
PROC: 02HV33Z Insertion of Infusion Device into Superior Vena Cava, Percutaneous Approach (ICD-10-PCS; 2022-05-30)
PROC: 02H633Z Insertion of Infusion Device into Right Atrium, Percutaneous Approach (ICD-10-PCS; 2022-06-12)
PROC: 5A0935A Assistance with Respiratory Ventilation, Less than 24 Consecutive Hours, High Flow/Velocity Cannula (ICD-10-PCS; 2022-06-14)
PROC: 0BH17EZ Insertion of Endotracheal Airway into Trachea, Via Natural or Artificial Opening (ICD-10-PCS; 2022-06-15)
PROC: 5A12012 Performance of Cardiac Output, Single, Manual (ICD-10-PCS; 2022-06-16)
DX: A41.9 Sepsis, unspecified organism (principal); J80 Acute respiratory distress syndrome; D65 Disseminated intravascular coagulation [defibrination syndrome]; J12.82 Pneumonia due to coronavirus disease 2019; R65.21 Severe sepsis with septic shock; D61.818 Other pancytopenia; U07.1 COVID-19; E43 Unspecified severe protein-calorie malnutrition; G93.41 Metabolic encephalopathy; R18.8 Other ascites; K76.82 Hepatic encephalopathy; E11.649 Type 2 diabetes mellitus with hypoglycemia without coma; E83.51 Hypocalcemia; K74.60 Unspecified cirrhosis of liver; K75.81 Nonalcoholic steatohepatitis (NASH); Z68.22 Body mass index [BMI] 22.0-22.9, adult; B95.2 Enterococcus as the cause of diseases classified elsewhere; Z99.11 Dependence on respirator [ventilator] status; R13.10 Dysphagia, unspecified; B18.1 Chronic viral hepatitis B without delta-agent; D64.9 Anemia, unspecified; R79.89 Other specified abnormal findings of blood chemistry; E80.6 Other disorders of bilirubin metabolism; E88.09 Other disorders of plasma-protein metabolism, not elsewhere classified; T38.0X5A Adverse effect of glucocorticoids and synthetic analogues, initial encounter; D68.59 Other primary thrombophilia; E11.65 Type 2 diabetes mellitus with hyperglycemia; E87.6 Hypokalemia; E87.0 Hyperosmolality and hypernatremia; E83.52 Hypercalcemia; E27.40 Unspecified adrenocortical insufficiency; K80.20 Calculus of gallbladder without cholecystitis without obstruction; Z79.4 Long term (current) use of insulin; Z79.899 Other long term (current) drug therapy; I46.9 Cardiac arrest, cause unspecified
CPT/HCPCS: 36415; 36600; 49083; 70450-TC; 71045; 71275; 74018; 76376; 80048; 80053; 80202; 81000; 82009; 82140; 82150; 82306; 82607; 82728; 82746; 82803-TC; 82947; 82962; 83605; 83615; 83690; 83735; 83880; 84100; 84157; 84484; 84703; 85007; 85025; 85027; 85049-TC; 85379; 85384; 85610-TC; 85651-TC; 85730-TC; 86140; 86704; 86705; 86707; 86900; 86901; 87040; 87070-TC; 87081; 87086; 87186-TC; 87205-TC; 87350; 89051-TC; 89060-TC; 92610-GN; 92950; 93005; 93970; 94002; 94003; 94640; 94664; 94760; 96365; 97110-GP; 97163-GP; 97530-GP; 99285; C1729; G0378; J0295; J0456; J0692; J1100; J1720; J1815; J1940; J1956; J2060; J2370; J2704; J3370; J3430; J3480; J3490; J7050; J7060; J7613; P9034; P9041; Q9967